=== PATIENT | female | born 1960 | race African-American/Black ===

== ENCOUNTER 2024-06-28 08:27 | Outpatient (AMB) | payer OTHER, SELFPAY ==
[2024-06-28 08:32] VITALS: BP 122/70; PULSE 82; O2SAT 100; BMI 24.4
--- NOTE | 2024-06-28 08:32 | A.OFFVIS_ITS ---
Vital Signs 06/28/24 08:32 Height 5 ft 2.5 in Weight 135 lb 6 oz BMI 24.4 BP 122/70 Blood Pressure Location Lt brachial Position Sitting Pulse 82 Pulse Source Pulse Oximeter Pulse Oximetry (%) 100 Oxygen Delivery Method Room Air Intake Visit Reasons: Arthritis/MD RECIEVED Intake Note: Patient presents today for follow up on rheumatoid arthritis. HPI HPI Arthritis/MD RECIEVED: Details: She feels well. She had a 21 day fast and has been eating healthy. No recent infections. Review of Systems Const All systems reviewed & are unremarkable except as noted in HPI and below Physical Exam Vital Signs: Last Vital Signs Pulse 82 06/28/24 08:32 BP 122/70 06/28/24 08:32 Pulse Ox 100 06/28/24 08:32 Oxygen Delivery Method Room Air 06/28/24 08:32 BMI result Body Mass Index 24.4 Const Other: General: Comfortable CVS: RRR Respiratory: clear to auscultation bilaterally. Good respiratory effort Skin: No lesions seen MSK: No tenderness on palpation of any joints. No synovitis. Good range of motion of upper extremities and lower extremities. Assessment & Plan Assessment & Plan (1) Rheumatoid arthritis: Comment: Seronegative (RF/CCP). Positive ELICEO 1:640. Methotrexate 09/2021 to present, hydroxychloroquine May 2022 to present. She is in remission on current regimen. Code(s): M06.9 - Rheumatoid arthritis, unspecified Category: Medical Plan: Labs for disease and drug monitoring ordered Continue hydroxychloroquine 300 mg daily. Requesting last eye exam for hydroxychloroquine surveillance Continue methotrexate 20 mg once weekly. After lab results are back, we will send three-month supply Continue folic acid 1 mg daily (2) Other adjunct faculty for medical terminology (current) drug therapy: Code(s): Z79.899 - Other chcf (current) drug therapy Category: Medical Plan: See above Orders: Orders C Reactive Protein Today M06.9 - Rheumatoid arthritis, unspecified, Z79.899 - Other chcf (current) drug therapy Alanine Aminotransferase Today Z79.60 - terminal operations supervisor (current) use of unspecified immunomodulators and immunosuppressants Aspartate Amino Transferase Today Z79.60 - prison (current) use of unspecified immunomodulators and immunosuppressants Creatinine Today Z79.60 - terminal operations supervisor (current) use of unspecified immunomodulators and immunosuppressants Hepatitis B,C Profile Today M06.9 - Rheumatoid arthritis, unspecified, Z79.899 - Other adjunct faculty for medical terminology (current) drug therapy Erythrocyte Sedimentation Rate Today M06.9 - Rheumatoid arthritis, unspecified, Z79.899 - Other chcf (current) drug therapy Complete Blood Count Auto Diff Today Z79.60 - prison (current) use of unspecified immunomodulators and immunosuppressants T Spot TB Today M06.9 - Rheumatoid arthritis, unspecified, Z79.899 - Other adjunct faculty for medical terminology (current) drug therapy Cyclic Citrullinated Peptide Today M06.9 - Rheumatoid arthritis, unspecified, Z79.899 - Other chcf (current) drug therapy Rheumatoid Factor Today M06.9 - Rheumatoid arthritis, unspecified, Z79.899 - Other adjunct faculty for medical terminology (current) drug therapy Coding Level of Care Code Est Pt Level 4 (82472) Complex EM visit Add On G2211 Diagnoses Rheumatoid arthritis M06.9 Other adjunct faculty for medical terminology (current) drug therapy Z79.899
== END 2024-06-28 09:21 | disposition home or self-care (01) ==
PROVIDERS: PCP Internal Medicine; Visit Provider Internal Medicine Rheumatology
DX: M06.9 Rheumatoid arthritis, unspecified (principal); Z79.899 Other long term (current) drug therapy
CPT/HCPCS: 99214

== ENCOUNTER 2024-06-28 08:27 | Outpatient (REF) | payer OTHER, SELFPAY ==
[2024-06-28 10:18] LABS: MANUAL DIFF FLAG NO
[2024-06-28 11:18] LABS: Basophils Percent Auto 0.7 % (0-2); Eosinophils Absolute Auto 0.1 X10*3/uL (0.0-0.4); Eosinophils Percent Auto 1.2 % (0-4); Hematocrit 39.2 % (37.0-47.0); Hemoglobin 13.1 g/dl (12.0-16.0); Imm Gran Abs Auto 0.01 X10*3/uL (0.00-0.03); Imm Gran Pct Auto 0.2 % (0.0-0.4); Lymphocytes Absolute Auto 1.7 X10*3/uL (1.2-4.9); Lymphocytes Percent Auto 42.2 % (20-40); Mean Corpuscular HGB Conc 33.4 g/dl (31.0-35.0); Mean Corpuscular Volume 92.9 fL (80.0-98.0); Mean Platelet Volume 11.6 fL (9.4-12.3); Monocytes Absolute Auto 0.4 X10*3/uL (0.1-1.2); Monocytes Percent Auto 10.7 % (2-11); Neutrophils Absolute Auto 1.8 x10*3/uL (2.0-8.3); Platelet Count 283 X10*3/uL (160-400); Red Blood Count 4.22 X10*6/uL (4.20-5.50); Red Cell Distribution Width 13.8 % (11.0-16.0); White Blood Count 4.1 X10*3/uL (4.8-10.8)
[2024-06-28 11:36] LABS: Rheumatoid Factor < 13.0 IU/mL (<15.0)
[2024-06-28 11:57] LABS: Erythrocyte Sedimentation Rate 12 MM/HR (0-20)
[2024-06-28 12:01] LABS: Alanine Aminotransferase 24 U/L (0-31); Aspartate Amino Transferase 24 U/L (5-31); C Reactive Protein 0.28 mg/dL (< or = 0.50); Estimated Glomerular Filt Rate > 60
[2024-06-28 12:38] LABS: HBS Num1 2.58 mIU/mL (0-7.99); HBc Num1 0.14 S/CO (0.00-0.79); HBsAGNum1 0.36 S/CO (0.00-0.99); Hepatitis B Core Antibody Nonreactive (Nonreactive); Hepatitis B Surface Antigen Negative (Negative); ~HepC Num1 0.12 S/CO (0.00-0.79); ~Hepatitis B Surface Antibody NONREACTIVE (Nonreactive); ~Hepatitis C Antibody Nonreactive (Nonreactive)
[2024-07-01 16:28] LABS: TS Negative Control Passed; TS Panel A 0; TS Panel B 0; TS Positive Control Passed; TSpotTB Negative (Negative)
[2024-07-03 15:12] LABS: Cyclic Citrullinated Peptide <16 UNITS
== END 2024-06-28 08:28 | disposition home or self-care (01) ==
LOC: HO.LAB 08:27
PROVIDERS: PCP Internal Medicine; Visit Provider Internal Medicine Rheumatology
DX: M06.9 Rheumatoid arthritis, unspecified (principal); Z79.899 Other long term (current) drug therapy; Z79.60 Long term (current) use of unspecified immunomodulators and immunosuppressants
CPT/HCPCS: 36415; 82565; 84450; 84460; 85025; 85652; 86140; 86200; 86431; 86481; 86704; 86706; 86803; 87340

== ENCOUNTER 2024-09-18 10:34 | Outpatient (REF) | payer OTHER, SELFPAY ==
[2024-09-18 11:02] LABS: MANUAL DIFF FLAG NO
[2024-09-18 12:02] LABS: Basophils Percent Auto 0.7 % (0-2); Eosinophils Percent Auto 0.9 % (0-4); Hematocrit 39.9 % (37.0-47.0); Hemoglobin 13.1 g/dl (12.0-16.0); Imm Gran Abs Auto 0.01 X10*3/uL (0.00-0.03); Imm Gran Pct Auto 0.2 % (0.0-0.4); Lymphocytes Absolute Auto 1.7 X10*3/uL (1.2-4.9); Lymphocytes Percent Auto 39.3 % (20-40); Mean Corpuscular HGB Conc 32.8 g/dl (31.0-35.0); Mean Corpuscular Hemoglobin 31.8 pg (27.0-33.0); Mean Corpuscular Volume 96.8 fL (80.0-98.0); Mean Platelet Volume 11.4 fL (9.4-12.3); Monocytes Absolute Auto 0.5 X10*3/uL (0.1-1.2); Monocytes Percent Auto 12.4 % (2-11); Neutrophils Percent Auto 46.5 % (45-73); Platelet Count 273 X10*3/uL (160-400); Red Blood Count 4.12 X10*6/uL (4.20-5.50); Red Cell Distribution Width 13.5 % (11.0-16.0); White Blood Count 4.3 X10*3/uL (4.8-10.8)
--- OUTSIDE RECORDS SUMMARY | 2024-09-18 12:41 | XMS_ITS | Encounter Summary ---
Author Organization [facility] Address [address] [place] [address] Phone Care Team Providers Care Telescope Maintenance Name Role Phone Bruno Hawley Primary Care Provider [phone] Encounter Details Date Type Department Care Team (Late st Contact Info) Description 01/07/2022 Documentation Only [facility] [address] [place] [address] Jon Gomez MD [address] [place] [address] Social History Tobacco Use Types Packs/Day Years Used Date Smoking Tobacco: Never Smokeless Tobacco: Never Alcohol Use Standard Drinks/Week Comments No 0 (1 standard drink = 0.6 oz pur e alcohol) Comments Unknown Sex and Gender Information Value Date Recorded Sex Assigned at Not on file Legal Sex Female 4:36 PM EST Gender Identity Not on file Sexual Orientation Not on file documented as of this encounter Plan of Treatment Not on file documented as of this encounter Visit Diagnoses Not on filedocumented in this encounter Care Teams Telescope Maintenance Relationship Specialty Start Date End Date Bruno Hawley [address] [place] [id number] PCP - General Internal Medicine 09/12/19 documented as of this encounter
--- OUTSIDE RECORDS SUMMARY | 2024-09-18 12:41 | XMS_ITS | Clinical Summary ---
Author Organization [facility], Address [address] [place] [address] [place] [address] Phone Care Team Providers Care Clinical Manager Name Role Phone Bruno Hawley Primary Care Provider [phone] Allergies Active Allergy Reactions Criticality Noted Date Comments Penicillins Other (see comments) 09/04/2019 Medications raNITIdine (ZANTAC) 150 MG tablet Take 1 tablet by mouth 2 (two) times a day Active norethindrone-e thinyl estradiol (LOESTRIN 07/30, ,) 1-20 MG-MCG per tablet Take 1-20 mcg by mouth 1 (one) time each day Active norethindrone-e thinyl estradiol (JUNEL 07/30) 1-20 MG-MCG per tablet Take 1-20 mcg by mouth 1 (one) time each day 6 Active fluticasone (FLONASE) 50 MCG/ACT nasal spray Administer 50 sprays into each nostril 2 (two) times a day Active Eflornithine HCl (VANIQA) 13.9 % cream Apply 13.9 application topically 1 (one) time each day Active omeprazole (PriLOSEC) [address] capsule Take 2 capsules by mouth 1 (one) time each day Active loratadine (CLARITIN) 10 MG tablet Take 10 mg by mouth 1 (one) time each day 0 Active Flovent HFA 220 MCG/ACT inhaler TAKE 1 PUFF BY MOUTH TWICE A DAY 0 Active famotidine (PEPCID) 20 MG tablet Take 20 mg by mouth 0 Active EPINEPHrine (EPIPEN) 0.3 MG/0.3ML injection syringe INJECT 1 DEVICE DIRECTED NEEDED (ANAPHYLAXIS). USE DIRECTED 0 Active Active Problems Problem Noted Date Diagnosed Date Fibromyalgia 09/04/2019 Nephrocalcinosis 09/04/2019 Steatosis of liver 09/04/2019 Vitamin D deficiency 09/04/2019 Encounters Date Type Department Care Team Description 08/13/2024 Orders Only [facility] [address] [place] [address] Hossein Naik MD from Last 3 Months Immunizations Name Administration Dates Next Due Influenza, Recombinant, Quadrivalent, Pf 020 Tdap 06/22/2012 Family History Medical History Relation Comments Cancer Father prostate Hypertension Father Cancer Mother breast Relation Status Comments Father Mother Social History Tobacco Use Types Packs/Day Years Used Date Smoking Tobacco: Never Smokeless Tobacco: Never Alcohol Use Standard Drinks/Week Comments No 0 (1 standard drink = 0.6 oz pur e alcohol) Comments Unknown Sex and Gender Information Value Date Recorded Sex Assigned at Not on file Legal Sex Female 4:36 PM EST Gender Identity Not on file Sexual Orientation Not on file Last Filed Vital Signs Vital Sign Reading Time Taken Comments Blood Pressure 94/64 04/06/2018 12:00 PM EDT Pulse - - Temperature - - Respiratory Rate - - Oxygen Saturation - - Inhaled Oxygen Concentration - - Weight - - Height 157.5 cm (5' 2 ) 04/06/2018 12:00 PM EDT Body Mass Index - - Plan of Treatment Health Maintenance Due Date Last Done Comments Breast Cancer Screening 1960 Pneumococcal Vaccine: Pediat rics (0 to 5 Years) and At-Risk Patients (6 to 64 Years) (1 of 2 - PCV) 1968 Colorectal Cancer Screening: Annual FOBT 10/09/2011 Colorectal Cancer Screening: Colonoscopy 10/09/2011 Colorectal Cancer Screening: Sigmoidoscopy 10/09/2011 Influenza Vaccine (#1) 2024 05/26/2020 Hepatitis B Vaccine Aged Out No longe r eligible based on patient's age to complete this topic Procedures Procedure Name Priority Date/Time Associated Diagnosis Comments OXALATE, URINE, 24 HOUR Routine 08/13/2024 10:41 AM EST CITRATE, URINE, 24 HOUR WITH CREATININE Routine 08/13/2024 10:41 AM EST RENAL FUNCTION PANEL Routine 08/13/2024 10:41 AM EST URINE ALBUMIN / CREATININE RATIO Routine 08/13/2024 10:41 AM EST CALCIUM, URINE, 24 HOUR Routine 08/13/2024 10:41 AM EST URIC ACID, URINE, 24 HOUR Routine 08/13/2024 10:41 AM EST CREATININE, URINE, 24 HOUR Routine 08/13/2024 10:41 AM EST SODIUM, URINE, 24 HOUR Routine 08/13/2024 10:41 AM EST CBC WITH AUTO DIFFERENTIAL Routine 08/13/2024 10:41 AM EST UA W/REFLEX MICROSCOPIC & CULTURE Routine 08/13/2024 10:41 AM EST from Last 3 Months Results * DIGOXIN LEVEL (HC) (08/13/2024 10:41 AM EST) Specific Mcdougal 1.011 1.003 - 1.030 [facility] pH Urine 6.0 5.0 - 8.0 pH [facility] LEUKOCYTES, URINE Negative Negative [facility] Nitrite, Urine Negative Negative [facility] Protein, Urine Negative <=Trace mg/dL [facility] Glucose Urine Negative Negative mg/dL [facility] Ketones, Urine Negative Negative mg/dL [facility] Urobilinogen Urine 0.2 0.2 - 1.0 mg/dL [facility] Bilirubin Urine Negative Negative [facility] Blood Urine Negative Negative [facility] 08/13/2024 10:4 1 AM EST 08/13/2024 11:49 AM EST us Hossein Niak MD LAB [id number] LICITED RESULTS Final Result HAYDE[facility] [address] [place] [address] * (ABNORMAL) CBC auto differential (08/13/2024 10:41 AM EST) WBC 4.5(L) 4.8 - 10.8 K/mcL [facility] RBC 3.90 3.80 - 4.80 M/[facility] Hgb 12.5 11.5 - 16.0 g/dL [facility] Hematocrit 38.8 35.0 - 47.0 % [facility] MCV 99.2(H) 79.0 - 98.0 FL [facility] MCH 32.0 27.0 - 32.0 pcg [facility] MCHC 32.2 32.0 - 37.0 g/dL [facility] RDW 13.8 11.0 - 15.0 % [facility] Platelets 304 130 - 400 K/[facility] MPV 11.8(H) 7.0 - 11.0 FL [facility] nRBC Count 0.0 <1.0 % [facility] NRBC Absolute 0.00 <0.10 K/mcL [facility] Bands Relative 38.8 % [facility] Lymphocyte Realative Percent 46.5 % [facility] Monocyte Relative Percent 12.2 % [facility] Eosinophil Relative Percent 1.8 % [facility] Basophils Relative Diff 0.7 % [facility] Immature Granulocytes 0.0 % [facility] Neutrophils Absolute 1.76 1.50 - 7.00 K/[facility] Lymphocytes Absolute 2.10 1.00 - 5.00 K/[facility] Monocytes Absolute 0.55 0.20 - 1.00 K/[facility] Eosinophil Absolute 0.08 0.00 - 0.50 K/[facility] Basophil ABS 0.03 0.00 - 0.20 K/[facility] Immature Grans (Absolute) 0.00 0.00 - 0.03 K/[facility] 08/13/2024 10:4 1 AM EST 08/13/2024 11:49 AM EST Hossein Naik MD LAB BLOOD ORDERABLES Final Resu lt Performing Organization Address City/[facility] [address]/ZIP Co de Phone Number [facility] [address] [place] [address] * Urine Uric Acid, 24 hour (08/13/2024 10:41 AM EST) Uric Acid, Ur 14.0 mg/dL [facility] Uric Acid, 24H Ur 420 0 - 800 mg/24 hr [facility] Urine Volume 3,000 mL [facility] Collection Interval, Ur 24 hr [facility] 08/13/2024 10:4 1 AM EST 08/13/2024 11:46 AM EST us Hossein Naik MD LAB URINE ORDERABLES Final Resu lt Performing Organization Address City/[facility] [address]/ZIP Co de Phone Number [facility] [address] [place] [address] * Urine Calcium, 24 hour (08/13/2024 10:41 AM EST) Calcium, Ur <5.0 mg/dL [facility] Calcium, 24H Urine <150 50 - 400 mg/24 hr [facility] Urine Volume 3,000 mL [facility] Collection Interval, Ur 24 hr [facility] 08/13/2024 10:4 1 AM EST 08/13/2024 11:46 AM EST us Hossein Naik MD LAB URINE ORDERABLES Final Resu lt [facility] [address] [place] [address] * Creatinine, urine, 24 hour (08/13/2024 10:41 AM EST) Creatinine, Urine 32.0 mg/dL [facility] Creatinine, 24H Ur 960 800 - 2,000 mg/24 Hr [facility] Urine Volume 3,000 mL [facility] Collection Interval, Ur 24 hr [facility] 08/13/2024 10:4 1 AM EST 08/13/2024 11:46 AM EST us Hossein Naik MD LAB URINE ORDERABLES Final Resu lt [facility] [address] [place] [address] * Urine Albumin / Creatinine Ratio (08/13/2024 10:41 AM EST) Creatinine, Urine 84.0 mg/dL [facility] Microalbumin Urine Random 6.2 0.0 - 29.0 mg/L [facility] Microalbumin/Crea tinine Ratio 7 <30 mg/g creat [facility] 08/13/2024 10:4 1 AM EST 08/13/2024 11:49 AM EST us Hossein Naik MD LAB URINE ORDERABLES Final Resu lt Performing Organization Address [facility] [address]/ZIP Co de Phone Number [facility] [address] [place] [address] * Urine Sodium, 24 hour (08/13/2024 10:41 AM EST) Sodium, Ur 32 mmol/L [facility] Sodium, 24H Ur 96 40 - 220 mmol/24 hr [facility] Urine Volume 3,000 mL [facility] Collection Interval, Ur 24 hr [facility] 08/13/2024 10:4 1 AM EST 08/13/2024 11:46 AM EST us Hossein Naik MD LAB URINE ORDERABLES Final Resu lt Performing Organization Address [facility] [address]/[facility] de Phone Number [facility] [address] [place] [address] * Urine Oxalate, 24 hour (08/13/2024 10:41 AM EST) 24 HR Urine Volume 3,050 600 - 2000 mL [facility] Creatinine, 24H Ur 1.1 0.8 - 1.8 gm/24h [facility] Oxalate, 24H Ur 27 0 - 42 mg/day [facility] Comment: Test performed at [facility], [address] [place] [address] ? [phone] Denice Tejada MD, PhD - Broker Associate 08/13/2024 10:4 1 AM EST 08/13/2024 12:30 PM EST us Hossein Naik MD LAB URINE ORDERABLES Final Resu lt [facility] [address] [place] [address] * Citrate, urine, 24 hour with Creatinine (08/13/2024 10:41 AM EST) 24 HR Urine Volume 3,050 600 - 2000 mL [facility] Creatinine, 24H Ur 1.1 0.8 - 1.8 gm/24h [facility] Citrate, 24H Ur 863 280 - 1,240 mg/day [facility] Comment: Test performed at [facility], [address] [place], [place] ??[address] ? [phone] Denice Tejada MD, PhD - Broker Associate 08/13/2024 10:4 1 AM EST 08/13/2024 12:30 PM EST us Hossein Naik MD LAB URINE ORDERABLES Final Resu lt Performing Organization Address [facility] [address]/[facility] de Phone Number [facility] [address] [place] [address] * Renal Function Panel (08/13/2024 10:41 AM EST) Sodium 141 133 - 145 mmol/L [facility] Potassium 4.4 3.5 - 5.5 mmol/L [facility] Chloride 107 96 - 110 mmol/L [facility] Bicarbonate (CO2) 26 21 - 32 mmol/L [facility] Anion Gap 8 3 - 11 [facility] Glucose 90 70 - 100 mg/dL [facility] BUN 8 5 - 25 mg/dL [facility] Creatinine Serum 0.72 0.50 - 1.10 mg/dL [facility] eGFR 95 >=60 mL/min/1. 73m2 [facility] Comment:Calculation based on the?Chronic Kidney Disease Epidemiology Collaboration (CKD-EPI) equation refit?without adjustment for race. BUN/Creatinine Ratio 11.1 [facility] Albumin 3.9 3.2 - 5.0 g/dL [facility] Calcium 9.5 8.5 - 10.5 mg/dL [facility] Phosphorus 3.7 2.5 - 4.5 mg/dL [facility] 08/13/2024 10:4 1 AM EST 08/13/2024 2:38 PM EST us Hossein Naik MD LAB BLOOD ORDERABLES Final Resu lt [facility] [address] [place] [address] from Last [address] [place] [address] [place] [address] Care Teams Clinical Manager Relationship Specialty Start Date End Date Bruno Hawley [address] [place] [id number] PCP - General Internal Medicine 09/12/19
--- OUTSIDE RECORDS SUMMARY | 2024-09-18 12:41 | XMS_ITS | Encounter Summary ---
Author Organization [facility] Address [address] [place] [address] Phone Care Team Providers Care Precision Machining Instructor Name Role Phone Bruno Hawley Primary Care Provider [phone] Encounter Details Date Type Department Care Team (Late st Contact Info) Description 08/09/2022 Documentation Only [facility] [address] [place] [address] Jon Gomez MD [address] [place] [address] Social History Tobacco Use Types [...] on filedocumented in this encounter Care Teams Precision Machining Instructor Relationship Specialty Start Date End Date Bruno Hawley [address] [place] [phone] PCP - General Internal Medicine 09/12/19 documented as of this encounter
--- OUTSIDE RECORDS SUMMARY | 2024-09-18 12:41 | XMS_ITS | Clinical Summary ---
Author Organization [facility] Address [address] [place] [id number] Phone Care Team Providers Care Meat Cooler Name Role Phone Karla Staton MD Primary Care Provider [phone] Allergies Active Allergy Reactions Criticality Noted Date Comments Lactose Diarrhea 03/17/2022 Penicillins 04/12/2006 ? Dizziness and dif breathing Medications azelastine (ASTELIN) 137 mcg (0.1 %) nasal spray INHALE 1 TO 2 SPRAY TWO TIMES A DAY IN EACH NOSTYRIL Active fluticasone furoate-vilante roL (BREO ELLIPTA) 200-25 mcg/dose inhaler INHALE 1 PUFF INTO THE LUNGS DAILY. RINSE MOUTH WITH WATER AND EXPECTORATE AFTER EACH DOSE Active hydroxychloroqu ine (PLAQUENIL) 200 mg tablet TAKE 1 & 1/2 TABLET BY MOUTH EVERY DAY 4 Active meclizine (ANTIVERT) 25 mg tablet Take 1 tablet (25 mg total) by mouth every 8 (eight) hours if needed for dizziness. 3 Active famotidine (PEPCID) 20 mg tablet Take 1 tablet (20 mg total) by mouth 2 (two) times a day. 3 Active albuterol HFA (PROAIR HFA ; PROVENTIL HFA ; VENTOLIN HFA) 90 mcg/actuation inhaler Inhale 2 Puffs into the lungs every 6 hours as needed for Cough, Wheezing or Shortness of Breath 3 Active folic acid (FOLVITE) 1 mg tablet folic acid 1 mg tablet Active methotrexate 2.5 mg tablet 8 tabs every week Active loratadine (CLARITIN) 10 mg tablet Take 1 tablet (10 mg total) by mouth 1 (one) time each day. 2 Active fluticasone propionate (FLONASE) 50 mcg/actuation nasal spray SPRAY 1 SPRAY INTO EACH NOSTRIL EVERY DAY BY INTRANASAL ROUTE DIRECTED FOR NASAL CONGESTION. 4 Active pantoprazole (PROTONIX) 40 mg EC tablet TAKE 1 TABLET BY MOUTH DAILY. TAKE IN A.M. ON EMPTY STOMACH, WAIT 30 MINUTES AND THEN EAT TO ACTIVATE MEDICATION 90 tablet 3 4 Active Active Problems Problem Noted Date Diagnosed Date Dysphagia 04/27/2024 Hoarseness of voice 04/27/2024 Postnasal drip 04/27/2024 Seasonal allergies 04/27/2024 Prediabetes 05/18/2023 Raynauds syndrome 09/15/2021 Rheumatoid arthritis 09/15/2021 Overview (04/27/2024): [facility] RF negative RA Dry eyes 10/04/2019 PND (post-nasal drip) 04/09/2019 Occupational asthma 06/20/2018 Chronic allergic rhinitis 01/31/2018 Evidence of airways hyperrea ctivity without diagnosis of asthma 01/31/2018 Upper airway cough syndrome 01/31/2018 Nephrolithiasis 02/13/2015 Lumbosacral disc herniation 07/01/2014 Overview (04/27/2024): Ongoing back pain , seen on abd ct in 2013 Nephrocalcinosis 06/28/2014 Vitamin D deficiency 05/26/2010 Heartburn symptom 05/25/2010 Mild mitral regurgitation 01/20/2010 Overview (04/27/2024): ECHO: 01/2010 Hepatic steatosis 10/24/2009 Overview (04/27/2024): Seen on CT abd 10/2009 Rectal pain 10/04/2008 Elevated antinuclear antibody (ELICEO) level 2008 Disturbance of skin sensation 05/11/2007 Overview (04/27/2024): Dr. Abad; 2006 MRI showed T2 lesion R centrum ovale - ? Significance Much improved 05/2011 Carpal tunnel syndrome 12/07/2006 Overview (04/27/2024): EMG 10/25: moderate to severe on right, mild on left Dizziness and giddiness 12/07/2006 Overview (04/27/2024): seen neurologist in [place]. MRI normal in 11/2001 Encounters Date Type Department Care Team Description 08/01/2024 1:15 PM EST Office Visit Nephrology - [place] [address] [place] [address] Hossein Naik MD Nephrocalcinosis (Primary Dx); Nephrolithiasis from Last 3 Months Immunizations Name Administration Dates Next Due Influenza Quadravalent, MDCK , 0.5ml, preservative free (Flucelvax) 6mo and older 03/13/2024,05/17/2023,05/28/2021 Influenza Quadravalent, MDCK , 0.5ml, with preservative (Flucelvax) 6mo and older 05/14/2018 Pfizer SARS-CoV-2 COVID-19, mRNA, LNP-S, preservative free 04/05/2021,03/15/2021 Tdap Tetanus diptheria acell ular pertussis (Boostrix; Adacel) 7yo and older 05/17/2023,06/22/2012 Surgical History Surgery Date Site/Laterality Comments FLEXIBLE SIGMOIDOSCOPY 10/04/08 PROCEDURE: ME SIGMOIDOSCOPY FLX DX W/COLLJ SPEC BR/WA IF PFRMD; COMMENT: normal COLONOSCOPY 12/19/13 PROCEDURE: HISTORICAL COLONOSCOPY; COMMENT: tics; repeat in ten yrs ESOPHAGOGASTRODUODENOSCOPY 12/19/13 PROCEDURE: ME ESOPHAGOGASTRODUODENOSCOPY TRANSORAL DIAGNOSTIC; COMMENT: normal; nl duodenal biopsies CHOLECYSTECTOMY Medical History Medical History Date Comments Carpal tunnel syndrome 12/07/2006 DX:Carpal tunnel syndrome Dizziness and giddiness 12/07/2006 DX:Dizzi ness and giddiness Disturbance of skin sensation 05/11/2007 DX :Disturbance of skin sensation; COMMENT: Dr. Abad; 2006 MRI showed T2 lesion R centrum ovale - ? significance Elevated antinuclear antibod y (ELICEO) level 09/20/2008 DX:Elevated antinuclear anti body (ELICEO) level Breast lump DX:Breast lump Dysphagia DX:Dysphagia Esophageal reflux DX:Esophageal reflux Hoarseness of voice DX:Hoarsenes s of voice Postnasal drip DX:Postnasal dri p Seasonal allergies DX:Seasonal a llergies Asthma DX:Asthma Status post dilation of esop hageal narrowing DX:Status post dilation of e sophageal narrowing Constipation DX:Constipation Rheumatoid arthritis (CMS/HCC) D X:Rheumatoid arthritis (HCC) Chronic bronchitis (CMS/HCC) DX: Chronic bronchitis (HCC) Raspy voice DX:Raspy voice Esophageal stenosis DX:Esophagea l stenosis Migraines Family History Medical History Relation Name Comments Other: cancer Aunt paternal aunt, type uncertain Prostate cancer Father Other cancer Maternal Grandmother stomach Arthritis Mother Breast cancer Mother's side cousin, and m om's sister Colon cancer Neg Hx Ovarian cancer Neg Hx Relation Name Status Comments Aunt Father htn, prostate c ancer Maternal Grandmother Mother dm, Mother's side Social History Tobacco Use Types Packs/Day Years Used Date Smoking Tobacco: Never Smokeless Tobacco: Never Alcohol Use Standard Drinks/Week Comments No 0 (1 standard drink = 0.6 oz pur e alcohol) Interpersonal Safety Answer Date Record ed Physical Abuse 06/13/2024 Verbal Abuse 06/13/2024 Comments No Sex and Gender Information Value Date Recorded Sex Assigned at Not on file Legal Sex Female 8:46 AM EST Gender Identity Not on file Sexual Orientation Not on file Obstetrics History Last Filed Vital Signs Vital Sign Reading Time Taken Comments Blood Pressure 118/79 08/01/2024 1:22 PM EST Pulse 90 08/01/2024 1:22 PM EST Temperature 36.7 ??C (98 ??F) 06/13/2024 4:08 PM EST Respiratory Rate 15 06/13/2024 4:28 PM EST Oxygen Saturation 99% 06/13/2024 4:28 PM EST Inhaled Oxygen Concentration - - Weight 62.1 kg (136 lb 12.8 oz) 08/01/2024 1:22 PM EST Height 157.5 cm (5' 2 ) 06/13/2024 3:10 PM EST Body Mass Index 25.02 06/13/2024 3:10 PM EST Plan of Treatment Upcoming Encounters Date Type Department Care Team (Late st Contact Info) Description 10/19/2024 11:30 AM EDT Office Visit [facility] - [address] [phone] Karla Staton MD [address] [place], [place] 02/27/2025 3:00 PM EDT Office Visit Nephrology - [address] [phone] Hossein Naik MD 100 [facility] [address] [place] [address] Health Maintenance Due Date Last Done Comments Breast Cancer Screening 1960 Hepatitis A Vaccines (1 of 2 - Risk 2-dose series) 1981 Pneumococcal Vaccine: 50+ Years (1 of 2 - PCV) 1981 Pneumococcal Vaccine: Pediatrics (0 to 5 Years) and At-Risk Patients (6 to 64 Years) (1 of 2 - PCV) 1981 Zoster Vaccines (1 of 2) 2012 COVID-19 Vaccine (3 - Pfizer risk series) 05/03/2021 04/05/2021, 03/15/2021 Depression Screening 06/19/2022 Social Influencers of Health Screening 06/19/2022 Hepatitis B Vaccines (1 of 3 - Risk 3-dose series) 2022 RSV Immunization Patients 60+ Years Old (1 - Risk 60-74 years 1-dose series) 2022 Cervical Cancer Screening: HPV 11/10/2028 11/11/2023 Cholesterol Screening (Lipid Panel) 11/23/2028 11/24/2023, 11/24/2023 Colorectal Cancer Screening: Colonoscopy 06/13/2029 06/13/2024, 12/19/2013 DTaP,Tdap,and Td Vaccines (3 - Td or Tdap) 05/17/2033 05/17/2023, 06/22/2012 HIV Screening Completed 10/12/2017 Hepatitis C Screening Completed 10/12/2017 Influenza Vaccine Completed 03/13/2024, , 05/28/2021, Additional history exists HIB Vaccines Aged Out No longer eligi ble based on patient's age to complete this topic HPV Vaccines Aged Out No longer eligi ble based on patient's age to complete this topic IPV Vaccines Aged Out No longer eligi ble based on patient's age to complete this topic MMR Vaccines Aged Out No longer eligi ble based on patient's age to complete this topic Meningococcal ACWY Vaccine Aged Out N o longer eligible based on patient's age to complete this topic Meningococcal B Vacine Aged Out No lo nger eligible based on patient's age to complete this topic RSV Immunization Patients Under 20 months Aged Out No longer eligible based on patient's age to complete this topic Varicella Vaccines Aged Out No longer eligible based on patient's age to complete this topic Procedures Procedure Name Priority Date/Time Associated Diagnosis Comments MANCINI URINE CULTURE TUBE Routine 08/13/2024 11:08 AM EST Nephrocalcinosis Nephrolithiasis Frequency of urination CBC WITH AUTO DIFFERENTIAL Routine 08/13/2024 10:41 AM EST Chronic kidney disease, unspecified CKD stage RENAL FUNCTION PANEL Routine 08/13/2024 10:41 AM EST Chronic kidney disease, unspecified CKD stage CBC AND DIFFERENTIAL Routine 08/13/2024 10:41 AM EST Chronic kidney disease, unspecified CKD stage URINALYSIS WITH REFLEX MICROSCOPIC AND CULTURE Routine 08/13/2024 10:41 AM EST Nephrocalcinosis Nephrolithiasis Frequency of urination MICROALBUMIN CREATININE URINE RATIO Routine 08/13/2024 10:41 AM EST Chronic kidney disease, unspecified CKD stage CALCIUM, URINE, 24H Routine 08/13/2024 1 0:41 AM EST Nephrocalcinosis Nephrolithiasis CITRATE, URINE, 24H Routine 08/13/2024 1 0:41 AM EST Nephrocalcinosis Nephrolithiasis CREATININE, URINE, 24H Routine 08/13/2024 10:41 AM EST Nephrocalcinosis Nephrolithiasis OXALATE URINE, 24H Routine 08/13/2024 10 :41 AM EST Nephrocalcinosis Nephrolithiasis SODIUM, URINE, 24H Routine 08/13/2024 10 :41 AM EST Nephrocalcinosis Nephrolithiasis URIC ACID, URINE, 24H Routine 08/13/2024 10:41 AM EST Nephrocalcinosis Nephrolithiasis URINALYSIS WITH REFLEX MICROSCOPIC AND CULTURE Routine 08/13/2024 10:41 AM EST Nephrocalcinosis Nephrolithiasis Frequency of urination COLONOSCOPY Routine 06/13/2024 4:07 PM EST Special screening for malignant neoplasms, colon LIPID PANEL Routine 11/24/2023 HM HPV Routine 11/11/2023 HM HEPATITIS C SCREENING Routine 10/12/2017 HM HIV SCREENING Routine 10/12/2017 from Last 3 Months or Most Recently Relevant to Health Maintenance Results * Mancini urine culture tube (08/13/2024 11:08 AM EST) Extra Tube Hold for add-ons. 08/13/2024 1:02 PM EST [facility] Comment:Auto resulted. Urine Urine specimen obtained by clean catch procedure / Unknown Non-blood Collection / Unknown 08/13/2024 11:08 AM EST 08/13/2024 11:08 AM EST us Hossein Naik MD LAB URINE ORDERABLES Final Resu lt [facility] [address] [place] [address], [place] [phone] * Urinalysis with reflex microscopic and culture (08/13/2024 10:41 AM EST) Specific Morris Urine 1.011 1.003 - 1.030 LAB URINALYSIS - AUTOMATED METHOD 08/13/2024 12:13 PM [facility] pH, Urine 6.0 5.0 - 8.0 pH LAB URINALYSIS - AUTOMATED METHOD 08/13/2024 12:13 PM [facility] Leukocytes, Urine Negative Negative LAB URINALYSIS - AUTOMATED METHOD 08/13/2024 12:13 PM [facility] Nitrite, Urine Negative Negative LAB URINALYSIS - AUTOMATED METHOD 08/13/2024 12:13 PM [facility] Protein, Urine Negative <=Trace mg/dL LAB URINALYSIS - AUTOMATED METHOD 08/13/2024 12:13 PM [facility] Glucose, Urine Negative Negative mg/dL LAB URINALYSIS - AUTOMATED METHOD 08/13/2024 12:13 PM [facility] Ketones, Urine Negative Negative mg/dL LAB URINALYSIS - AUTOMATED METHOD 08/13/2024 12:13 PM [facility] Urobilinogen, Urine 0.2 0.2 - 1.0 mg/dL LAB URINALYSIS - AUTOMATED METHOD 08/13/2024 12:13 PM [facility] Bilirubin, Urine Negative Negative LAB URINALYSIS - AUTOMATED METHOD 08/13/2024 12:13 PM [facility] Blood, Urine Negative Negative LAB URINALYSIS - AUTOMATED METHOD 08/13/2024 12:13 PM [facility] Urine Urine specimen obtained by clean catch procedure / Unknown Non-blood Collection / Unknown 08/13/2024 10:41 AM EST 08/13/2024 10:41 AM EST Hossein Naik MD LAB URINE ORDERABLES Final Resu lt [facility] [address] [place] [address], * (ABNORMAL) CBC auto differential (08/13/2024 10:41 AM EST) [facility] Signature WBC 4.5(L) 4.8 - 10.8 K/mcL LAB HEMETOLOGY METHOD 08/13/2024 12:21 PM EST [facility] RBC 3.90 3.80 - 4.80 M/mcL LAB HEMETOLOGY METHOD 08/13/2024 12:21 PM [facility] Hemoglobin 12.5 11.5 - 16.0 g/dL LAB HEMETOLOGY METHOD 08/13/2024 12:21 PM [facility] Hematocrit 38.8 35.0 - 47.0 % LAB HEMETOLOGY METHOD 08/13/2024 12:21 PM [facility] MCV 99.2(H) 79.0 - 98.0 FL LAB HEMETOLOGY METHOD 08/13/2024 12:21 PM EST [facility] MCH 32.0 27.0 - 32.0 pcg LAB HEMETOLOGY METHOD 08/13/2024 12:21 PM [facility] MCHC 32.2 32.0 - 37.0 g/dL LAB HEMETOLOGY METHOD 08/13/2024 12:21 PM EST [facility] RDW 13.8 11.0 - 15.0 % LAB HEMETOLOGY METHOD 08/13/2024 12:21 PM [facility] Platelets 304 130 - 400 K/mcL LAB HEMETOLOGY METHOD 08/13/2024 12:21 PM [facility] MPV 11.8(H) 7.0 - 11.0 FL LAB HEMETOLOGY METHOD 08/13/2024 12:21 PM [facility] NRBC 0.0 <1.0 % LAB HEMETOLOGY METHOD 08/13/2024 12:21 PM [facility] NRBC Absolute 0.00 <0.10 K/mcL LAB HEMETOLOGY METHOD 08/13/2024 12:21 PM [facility] Neutrophils Relative 38.8 % LAB HEMETOLOGY METHOD 08/13/2024 12:21 PM [facility] Lymphocytes Relative 46.5 % LAB HEMETOLOGY METHOD 08/13/2024 12:21 PM [facility] Monocytes Relative 12.2 % LAB HEMETOLOGY METHOD 08/13/2024 12:21 PM [facility] Eosinophils Relative 1.8 % LAB HEMETOLOGY METHOD 08/13/2024 12:21 PM [facility] Basophils Relative 0.7 % LAB HEMETOLOGY METHOD 08/13/2024 12:21 PM [facility] Immature Granulocytes Relative 0.0 % LAB HEMETOLOGY METHOD 08/13/2024 12:21 PM [facility] Neutrophils Absolute 1.76 1.50 - 7.00 K/mcL LAB HEMETOLOGY METHOD 08/13/2024 12:21 PM [facility] Lymphocytes Absolute 2.10 1.00 - 5.00 K/mcL LAB HEMETOLOGY METHOD 08/13/2024 12:21 PM [facility] Monocytes Absolute 0.55 0.20 - 1.00 K/mcL LAB HEMETOLOGY METHOD 08/13/2024 12:21 PM [facility] Eosinophils Absolute 0.08 0.00 - 0.50 K/mcL LAB HEMETOLOGY METHOD 08/13/2024 12:21 PM [facility] Basophils Absolute 0.03 0.00 - 0.20 K/mcL LAB HEMETOLOGY METHOD 08/13/2024 12:21 PM [facility] Immature Granulocytes Absolute 0.00 0.00 - 0.03 K/mcL LAB HEMETOLOGY METHOD 08/13/2024 12:21 PM EST [facility] Blood Venous blood specimen / Unknown Venipuncture / Unknown 08/13/2024 10:41 AM EST 08/13/2024 10:41 AM EST us Hossein Naik MD LAB BLOOD ORDERABLES Final Resu lt [facility] [address] [place] [address], [place] [phone] * Uric acid, urine, 24H (08/13/2024 10:41 AM EST) Uric Acid, Ur 14.0 mg/dL LAB CHEMISTRY METHOD 08/13/2024 4:17 PM [facility] Uric Acid, 24H Ur 420 0 - 800 mg/24 hr LAB CHEMISTRY METHOD 08/13/2024 4:17 PM [facility] Urine Volume 3,000 mL LAB CHEMISTRY METHOD 08/13/2024 4:17 PM [facility] Collection Interval, Ur 24 hr LAB CHEMISTRY METHOD 08/13/2024 4:17 PM [facility] Urine Urine specimen from urethra / Unknown Non-blood Collection / Unknown 08/13/2024 10:41 AM EST 08/13/2024 10:41 AM EST us Hossein Naik MD LAB URINE ORDERABLES Final Resu lt [facility] [address] [place] [address], [place] [phone] * Calcium, urine, 24H (08/13/2024 10:41 AM EST) Calcium, Ur <5.0 mg/dL LAB CHEMISTRY METHOD 08/13/2024 4:52 PM [facility] Calcium, 24H Urine <150 50 - 400 mg/24 hr LAB CHEMISTRY METHOD 08/13/2024 4:52 PM EST [facility] Urine Volume 3,000 mL LAB CHEMISTRY METHOD 08/13/2024 4:52 PM [facility] Collection Interval, Ur 24 hr LAB CHEMISTRY METHOD 08/13/2024 4:52 PM EST [facility] Urine Urine specimen from urethra / Unknown Non-blood Collection / Unknown 08/13/2024 10:41 AM EST 08/13/2024 10:41 AM EST us Hossein Naik MD LAB URINE ORDERABLES Final Resu lt Performing Organization Address City/[facility]/ZIP Co de Phone Number [facility] [address] [place] [address], [place] [phone] * Creatinine, urine, 24H (08/13/2024 10:41 AM EST) Creatinine, Urine 32.0 mg/dL LAB CHEMISTRY METHOD 08/13/2024 4:17 PM [facility] Creatinine, 24H Ur 960 800 - 2,000 mg/24 Hr LAB CHEMISTRY METHOD 08/13/2024 4:17 PM [facility] Urine Volume 3,000 mL LAB CHEMISTRY METHOD 08/13/2024 4:17 PM [facility] Collection Interval, Ur 24 hr LAB CHEMISTRY METHOD 08/13/2024 4:17 PM [facility] Urine Urine specimen from urethra / Unknown Non-blood Collection / Unknown 08/13/2024 10:41 AM EST 08/13/2024 10:41 AM EST us Hossein Naik MD LAB URINE ORDERABLES Final Resu lt Performing Organization Address [facility]/ZIP Co de Phone Number [facility] [address] [place] [address], [place] [phone] * Microalbumin creatinine urine ratio (08/13/2024 10:41 AM EST) Creatinine, Urine 84.0 mg/dL LAB CHEMISTRY METHOD 08/13/2024 5:04 PM [facility] Microalb, Ur 6.2 0.0 - 29.0 mg/L LAB CHEMISTRY METHOD 08/13/2024 5:04 PM [facility] Microalb/Creat Ratio 7 <30 mg/g creat LAB CHEMISTRY METHOD 08/13/2024 5:04 PM [facility] Urine Urine specimen obtained by clean catch procedure / Unknown Non-blood Collection / Unknown 08/13/2024 10:41 AM EST 08/13/2024 10:41 AM EST us Hossein Naik MD LAB URINE ORDERABLES Final Resu lt Performing Organization Address City/State/[facility] Co de Phone Number [facility] [address] [place] [address], [place] [phone] * Sodium, urine, 24H (08/13/2024 10:41 AM EST) Sodium, Ur 32 mmol/L LAB CHEMISTRY METHOD 08/13/2024 4:17 PM [facility] Sodium, 24H Ur 96 40 - 220 mmol/24 hr LAB CHEMISTRY METHOD 08/13/2024 4:17 PM [facility] Urine Volume 3,000 mL LAB CHEMISTRY METHOD 08/13/2024 4:17 PM [facility] Collection Interval, Ur 24 hr LAB CHEMISTRY METHOD 08/13/2024 4:17 PM [facility] Urine Urine specimen from urethra / Unknown Non-blood Collection / Unknown 08/13/2024 10:41 AM EST 08/13/2024 10:41 AM EST us Hossein Naik MD LAB URINE ORDERABLES [facility] [address] [place] [address], * Oxalate, urine, 24H (08/13/2024 10:41 AM EST) Urine Volume 3,050 600 - 2000 mL 08/17/2024 12:37 PM EST [facility] Creatinine 24 Hr Urine 1.1 0.8 - 1.8 gm/24h 08/17/2024 12:37 PM EST [facility] Oxalate 24 Hr Urine 27 0 - 42 mg/day 08/17/2024 12:37 PM EST [facility] Comment: Test performed at [facility], [address] [place], [place] ??[address] ? [phone] Denice Tejada MD, PhD - [employer] Urine Urine specimen from urethra / Unknown Non-blood Collection / Unknown 08/13/2024 10:41 AM EST 08/13/2024 10:41 AM EST Hossein Naik MD LAB URINE ORDERABLES Final Resu lt [facility] [address] [place] [address] * Citrate, urine, 24H (08/13/2024 10:41 AM EST) Urine Volume 3,050 600 - 2000 mL 08/17/2024 12:32 PM EST [facility] Creatinine 24 Hr Urine 1.1 0.8 - 1.8 gm/24h 08/17/2024 12:32 PM EST [facility] Citrate Urine 24 hour 863 280 - 1240 mg/day 08/17/2024 12:32 PM EST [facility] Comment: Test performed at [facility], [address] [place], [place] ??[address] ? [phone] Denice Tejada MD, PhD - Metal Cut [employer] Operator Urine Urine specimen from urethra / Unknown Non-blood Collection / Unknown 08/13/2024 10:41 AM EST 08/13/2024 10:41 AM EST us Hossein Naik MD LAB URINE ORDERABLES Final [place]u [place] [address] [place] [address] * Renal function panel (08/13/2024 10:41 AM EST) Sodium 141 133 - 145 mmol/L LAB CHEMISTRY METHOD 08/13/2024 5:10 PM [facility] Potassium 4.4 3.5 - 5.5 mmol/L LAB CHEMISTRY METHOD 08/13/2024 5:10 PM [facility] Chloride 107 96 - 110 mmol/L LAB CHEMISTRY METHOD 08/13/2024 5:10 PM [facility] CO2 26 21 - 32 mmol/L LAB CHEMISTRY METHOD 08/13/2024 5:10 PM [facility] Anion Gap 8 3 - 11 LAB CHEMISTRY METHOD 08/13/2024 5:10 PM [facility] Glucose 90 70 - 100 mg/dL LAB CHEMISTRY METHOD 08/13/2024 5:10 PM [facility] BUN 8 5 - 25 mg/dL LAB CHEMISTRY METHOD 08/13/2024 5:10 PM [facility] Creatinine 0.72 0.50 - 1.10 mg/dL LAB CHEMISTRY METHOD 08/13/2024 5:10 PM [facility] eGFR 95 >=60 mL/min/1. 73m2 LAB CHEMISTRY METHOD 08/13/2024 5:10 PM [facility] Comment:Calculation based on the??Chronic Kidney Disease Epidemiology Collaboration (CKD-EPI) equation refit??without adjustment for race. BUN/Creatinine Ratio 11.1 LAB CHEMISTRY METHOD 08/13/2024 5:10 PM [facility] Albumin 3.9 3.2 - 5.0 g/dL LAB CHEMISTRY METHOD 08/13/2024 5:10 PM EST [facility] Calcium 9.5 8.5 - 10.5 mg/dL LAB CHEMISTRY METHOD 08/13/2024 5:10 PM EST [facility] Phosphorus 3.7 2.5 - 4.5 mg/dL LAB CHEMISTRY METHOD 08/13/2024 5:10 PM EST [facility] Blood Venous blood specimen / Unknown Venipuncture / Unknown 08/13/2024 10:41 AM EST 08/13/2024 10:41 AM EST us Hossein Naik MD LAB BLOOD ORDERABLES Final Resu lt [facility]) [facility] [address] [place] [address], * COLONOSCOPY Anesthesia - [facility]; [facility] ENDOSCOPY (06/13/2024 4:07 PM EST) Anatomical Region Laterality Modality Endoscopy 06/13/2024 3:52 PM EST Impressions 06/13/2024 4:09 PM EST - Three 2 to 3 mm polyps in the ascending colon, ? removed with a cold snare. Resected and retrieved. ? - Melanosis in the colon. ? - Diverticulosis in the sigmoid colon. ? - Internal hemorrhoids. ? - The examination was otherwise normal. Recommendation: ?- Discharge patient to home. ? - Await pathology results. ? - Repeat colonoscopy in 7-10 years for surveillance. Narrative 06/13/2024 4:[address] [facility] GI Patient Name: Leslye Dior Procedure Date: 06/13/2024 3:52 PM Date of : 1960 Age: 63 Gender: Female Note Status: Finalized Attending MD: Ayanna Garcias MD, Procedure Date No Time: 06/13/2024 Procedure: ? Colonoscopy Indications: ? Screening for colorectal malignant neoplasm Providers: ? Ayanna Garcias MD Referring MD: ?Ayanna Garcias MD Medicines: ? Monitored Anesthesia Care Complications: ? No immediate complications. Estimated blood loss: ? Minimal. Estimated Blood Loss: ? Estimated blood loss was minimal. Procedure: ? Pre-Anesthesia Assessment: ? - Prior to the procedure, a History and Physical was ? performed, and patient medications and allergies were ? reviewed. The patient is competent. The risks and ? benefits of the procedure and the sedation options and ? risks were discussed with the patient. All questions ? were answered and informed consent was obtained. ? Patient identification and proposed procedure were ? verified by the physician, the nurse, the peer financial counselor ? and the hvac refrigeration technician in the pre-procedure area in the ? endoscopy suite. Mental Status Examination: alert and ? oriented. Airway Examination: normal oropharyngeal ? airway and neck mobility. Respiratory Examination: ? clear to auscultation. CV Examination: normal. ? Prophylactic Antibiotics: The patient does not require ? prophylactic antibiotics. Prior Anticoagulants: The ? patient has taken no anticoagulant or antiplatelet ? agents. ASA Grade Assessment: II - A patient with mild ? systemic disease. After reviewing the risks and ? benefits, the patient was deemed in satisfactory ? condition to undergo the procedure. The anesthesia ? plan was to use monitored anesthesia care (MAC). ? Immediately prior to administration of medications, ? the patient was re-assessed for adequacy to receive ? sedatives. The heart rate, respiratory rate, oxygen ? saturations, blood pressure, adequacy of pulmonary ? ventilation, and response to care were monitored ? throughout the procedure. The physical status of the ? patient was re-assessed after the procedure. ? After I obtained informed consent, the scope was ? passed under direct vision. Throughout the procedure, ? the patient's blood pressure, pulse, and oxygen ? saturations were monitored continuously. The Olympus ? Colonoscope was introduced through the anus and ? advanced to the cecum, identified by appendiceal ? orifice and ileocecal valve. The colonoscopy was ? performed without difficulty. The patient tolerated ? the procedure well. The quality of the bowel ? preparation was good. Findings: ?The perianal and digital rectal examinations were ? normal. ? Three sessile polyps were found in the ascending ? colon. The polyps were 2 to 3 mm in size. These polyps ? were removed with a cold snare. Resection and ? retrieval were complete. Estimated blood loss was ? minimal. ? A diffuse area of mild melanosis was found in the ? sigmoid colon, in the descending colon and in the ? transverse colon. ? Multiple small-mouthed diverticula were found in the ? sigmoid colon. ? Internal hemorrhoids were found during retroflexion. ? The hemorrhoids were Grade I (internal hemorrhoids ? that do not prolapse). ? The exam was otherwise without abnormality. Procedure Code(s): ? --- Professional --- ? 36713, Colonoscopy, flexible; with removal of ? tumor(s), polyp(s), or other lesion(s) by snare ? technique Diagnosis Code(s): ? --- Professional --- ? D12.2, Benign neoplasm of ascending colon CPT copyright 2020 [employer]. All rights reserved. The codes documented in this report are preliminary and upon auditing coder review may be revised to meet current compliance requirements. Ayanna Garcias MD 06/13/2024 4:08:51 PM This report has been signed electronically.Ayanna Garcias MD Number of Addenda: 0 Note Initiated On: 06/13/2024 3:52 PM Scope Withdrawal Time: 0 hours 6 minutes 6 seconds Scope In: 3:57:09 PM Scope Out: 4:06:07 PM ? Endoscopy Department at [facility] - [address] [place] [address], ? [place] [address] Procedure Note Ayanna Garcias MD - 06/13/2024 [facility] GI Patient Name: Leslye Dior Procedure Date: 06/13/2024 3:52 PM Date of : 1960 Age: 63 Gender: Female Note Status: Finalized Attending MD: Ayanna Garcias MD, Procedure Date No Time: 06/13/2024 Procedure: Colonoscopy Indications: Screening for colorectal malignant neoplasm Providers: Ayanna Garcias MD Referring MD: Ayanna Garcias MD Medicines: Monitored Anesthesia Care Complications: No immediate complications. Estimated blood loss: Minimal. Estimated Blood Loss: Estimated blood loss was minimal. Procedure: Pre-Anesthesia Assessment: - Prior to the procedure, a History and Physicalwas performed, and patient medications and allergieswere reviewed. The patient is competent. The risks and benefits of the procedure and the sedation optionsand risks were discussed with the patient. Allquestions were answered and informed consent was obtained. Patient identification and proposed procedure were verified by the physician, the nurse, theanesthetist and the hvac refrigeration technician in the pre-procedure area in the endoscopy suite. Mental Status Examination: alertand oriented. Airway Examination: normal oropharyngeal airway and neck mobility. Respiratory Examination: clear to auscultation. CV Examination: normal. Prophylactic Antibiotics: The patient does notrequire prophylactic antibiotics. Prior Anticoagulants: The patient has taken no anticoagulant or antiplatelet agents. ASA Grade Assessment: II - A patient withmild systemic disease. After reviewing the risks and benefits, the patient was deemed in satisfactory condition to undergo the procedure. The anesthesia plan was to use monitored anesthesia care (MAC). Immediately prior to administration of medications, the patient was re-assessed for adequacy to receive sedatives. The heart rate, respiratory rate, oxygen saturations, blood pressure, adequacy of pulmonary ventilation, and response to care were monitored throughout the procedure. The physical status ofthe patient was re-assessed after the procedure. After I obtained informed consent, the scope was passed under direct vision. Throughout theprocedure, the patient's blood pressure, pulse, and oxygen saturations were monitored continuously. TheOlympus Colonoscope was introduced through the anus and advanced to the cecum, identified by appendiceal orifice and ileocecal valve. The colonoscopy was performed without difficulty. The patient tolerated the procedure well. The quality of the bowel preparation was good. Findings: The perianal and digital rectal examinations were normal. Three sessile polyps were found in the ascending colon. The polyps were 2 to 3 mm in size. Thesepolyps were removed with a cold snare. Resection and retrieval were complete. Estimated blood loss was minimal. A diffuse area of mild melanosis was found in the sigmoid colon, in the descending colon and in the transverse colon. Multiple small-mouthed diverticula were found inthe sigmoid colon. Internal hemorrhoids were found duringretroflexion. The hemorrhoids were Grade I (internal hemorrhoids that do not prolapse). The exam was otherwise without abnormality. Procedure Code(s): --- Professional --- 31008, Colonoscopy, flexible; with removal of tumor(s), polyp(s), or other lesion(s) by snare technique Diagnosis Code(s): --- Professional --- D12.2, Benign neoplasm of ascending colon CPT copyright 2020 [employer]. All rights reserved. The codes documented in this report are preliminary and upon auditing coder reviewmay be revised to meet current compliance requirements. Ayanna Garcias MD 06/13/2024 4:08:51 PM This report has been signed electronically.Ayanna Garcias MD Number of Addenda: 0 Note Initiated On: 06/13/2024 3:52 PM Scope Withdrawal Time: 0 hours 6 minutes 6 seconds Scope In: 3:57:09 PM Scope Out: 4:06:07 PM Endoscopy Department at [address] [id number] IMPRESSION: - Three 2 to 3 mm polyps in the ascending colon, removed with a cold snare. Resected andretrieved. - Melanosis in the colon. - Diverticulosis in the sigmoid colon. - Internal hemorrhoids. - The examination was otherwise normal. Recommendation: - Discharge patient to home. - Await pathology results. - Repeat colonoscopy in 7-10 years forsurveillance. Result [facility] Ayanna Garcias MD GI~PROCEDURE ORDERABLES Fin al Result * Lipid panel (11/24/2023) [facility] LDL/HDL Ratio 3 0 - 4 Triglycerides 40 0 - 150 mg/dL Cholesterol 175 0 - 200 mg/dL HDL 68 >=40 mg/dL LDL Cholesterol 99 0 - 100 mg/dL Blood Venous blood specimen / Unknown Result [facility] Provider LAB BLOOD ORDERABLES Luz l Result * Cervical Cancer Screening: HPV (11/11/2023) [facility] Cervical Cancer Screening: HPV abstracted; negative Result [facility] Historical [facility] [employer] Final Result * HIV Screening (10/12/2017) [facility] HIV Screening abstracted [facility] [employer] Final Result * Hepatitis C Screening (10/12/2017) [facility] Hepatitis C Screening abstracted [facility] [employer] [employer] Final Result from Last 3 Months or Most Recently Relevant to Health Maintenance Insurance [facility] Care Teams Meat Cooler Relationship Specialty Start Date End Date Karla Staton MD [address] [place] [id number] PCP - General Internal Medicine 05/31/24
--- OUTSIDE RECORDS SUMMARY | 2024-09-18 12:41 | XMS_ITS | Clinical Summary ---
Author Organization [facility] Address [address] [place] [address] Care Team Providers Care Industrial Safety And Health Technician Name Role Phone Laina Mac APRN Primary Care Provider Allergies Active Allergy Reactions Criticality Noted Date Comments Lactose Diarrhea Low 01/07/2023 Penicillins Other (See Comments) 09/04/2019 Medications Medication Sig Dispensed Refills Start Date End Date Status methotrexate (RHEUMATREX) 2.5 MG tablet Take by mouth Active loratadine (CLARITIN) 10 MG tablet Take by mouth. 05/20/2021 Active folic acid (FOLVITE) 1 MG tablet Take by mouth. Active triamcinolone (NASACORT AQ) 55 MCG/ACT Aerosol nasal spray into each nostril. 11/04/2020 Active PANTOprazole (PROTONIX) 40 MG EC tablet Take by mouth. Active fluticasone-vilantero l (Breo Ellipta) 100-25 MCG/ACT inhaler Inhale. Active albuterol (PROVENTIL HFA; VENTOLIN HFA) 108 (90 Base) MCG/ACT inhaler Inhale. 08/26/2021 Active vxxflmgv-ssqaqgpzy-bz drocortisone (CORTISPORIN) 1 % SolutionIndications:A cute otitis externa of left ear, unspecified type Administer 4 drops into the left ear 3 (three) times a day. 10 mL 01/07/2023 Active Active Problems No known active problems Social History Tobacco Use Types Packs/Day Years Used Date Smoking Tobacco: Never Assessed Sex and Gender Information Value Date Recorded Sex Assigned at Not on file Gender Identity Not on file Sexual Orientation Not on file Last Filed Vital Signs Vital Sign Reading Time Taken Comments Blood Pressure 114/65 01/07/2023 8:53 AM EDT Pulse 83 01/07/2023 8:53 AM EDT Temperature 36.6 ??C (97.9 ??F) 01/07/2023 8:53 AM ED T Respiratory Rate - - Oxygen Saturation 100% 01/07/2023 8:53 AM EDT Inhaled Oxygen Concentration - - Weight 73.9 kg (163 lb) 01/07/2023 8:53 AM EDT Height 157.5 cm (5' 2 ) 01/07/2023 8:53 AM EDT Body Mass Index 29.81 01/07/2023 8:53 AM EDT Plan of Treatment Health Maintenance Due Date Last Done Comments Hepatitis C Virus Screening 1960 COVID-19 Vaccine (#1) 10/09/1967 Pneumococcal Vaccine: Pediat frederick (0-5 Years) and At-Risk Patients (6 to 49 Years) (1 of 2 - PCV) 1968 HIV Screening 10/09/1975 DTaP/Tdap/Td Vaccines (1 - Tdap) 1981 Pneumococcal Vaccines 50+ (1 of 2 - PCV) 1981 Zoster (Shingles) Vaccine (1 of 2) 1981 Pap Smear (Ages 21-65) 10/09/1983 Mammogram 2002 Colonoscopy 10/09/2007 RSV Vaccine 60 years and old er and Patients (1 - Risk 60-74 years 1-dose series) 2022 Influenza Vaccine 02/09/2024 Hepatitis B Vaccines Aged Out No long er eligible based on patient's age to complete this topic Care Teams Industrial Safety And Health Technician Relationship Specialty Start Date End Date Laina Mac APRN [address] [place] [address] PCP - General
[2024-09-18 12:42] LABS: Erythrocyte Sedimentation Rate 9 MM/HR (0-20)
[2024-09-18 12:45] LABS: Alanine Aminotransferase 21 U/L (0-31); Aspartate Amino Transferase 26 U/L (5-31); C Reactive Protein 0.17 mg/dL (< or = 0.50); Estimated Glomerular Filt Rate > 60
== END 2024-09-18 10:35 | disposition home or self-care (01) ==
LOC: HO.LAB 10:34
PROVIDERS: PCP Internal Medicine; Visit Provider Internal Medicine Rheumatology
DX: Z79.899 Other long term (current) drug therapy (principal); Z79.60 Long term (current) use of unspecified immunomodulators and immunosuppressants
CPT/HCPCS: 36415; 82565; 84450; 84460; 85025; 85652; 86140

== ENCOUNTER 2024-09-25 08:32 | Outpatient (AMB) | payer OTHER, SELFPAY ==
--- NOTE | 2024-09-25 08:35 | A.OFFVIS_ITS ---
Vital Signs 09/25/24 08:37 Height 5 ft 5.2 in Weight 138 lb 0.5 oz BMI 22.8 BP 98/62 Blood Pressure Location Lt brachial Position Sitting Pulse 91 Pulse Source Pulse Oximeter Pulse Oximetry (%) 98 Oxygen Delivery Method Room Air Intake Visit Reasons: Follow Up 3mo Intake Note: Patient presents today for follow up on rheumatoid arthritis. Allergies No Known Allergies Allergy (Verified 09/25/24 08:38) HPI HPI Follow Up 3mo: Details: Her MTX brand changed and she has felt a change. She feels a little pain in knees, shoulders and neck. No joint swelling. Denies morning stiffness. Review of Systems Const All systems reviewed & are unremarkable except as noted in HPI and below Physical Exam Vital Signs: Last Vital Signs Pulse 91 09/25/24 08:37 BP 98/62 09/25/24 08:37 Pulse Ox 98 09/25/24 08:37 Oxygen Delivery Method Room Air 09/25/24 08:37 BMI result Body Mass Index 22.8 Const Other: General: Comfortable CVS: RRR Respiratory: clear to auscultation bilaterally. Good respiratory effort Skin: No lesions seen MSK: No tenderness on palpation of any joints. No synovitis. Normal range of motion of upper extremities and lower extremities. Assessment & Plan Assessment & Plan (1) Rheumatoid arthritis: Comment: Seronegative (RF/CCP). Positive ELICEO 1:640. Methotrexate 09/2021 to present, hydroxychloroquine May 2022 to present. She is in remission on current regimen. She has very mild leukopenia likely due to bone suppression from methotrexate. I will monitor closely. Code(s): M06.9 - Rheumatoid arthritis, unspecified Category: Medical Plan: Labs for disease and drug monitoring UTD Continue hydroxychloroquine 300 mg daily. Baseline OCT and VF 05/2023 Continue methotrexate 20 mg once weekly. Continue folic acid 1 mg daily Return to clinic in 3 months (2) Other intermission coordinator (current) drug therapy: Code(s): Z79.899 - Other skilled nursing (current) drug therapy Category: Medical Plan: See above Orders: Orders Alanine Aminotransferase Today Z79.60 - correction (current) use of unspecified immunomodulators and immunosuppressants Aspartate Amino Transferase Today Z79.60 - local company intermodal truck driver (current) use of unspecified immunomodulators and immunosuppressants Creatinine Today Z79.60 - local company intermodal truck driver (current) use of unspecified immunomodulators and immunosuppressants C Reactive Protein Today Z79.899 - Other skilled nursing (current) drug therapy Complete Blood Count Auto Diff Today Z79.60 - correction (current) use of unspecified immunomodulators and immunosuppressants Erythrocyte Sedimentation Rate Today Z79.899 - Other skilled nursing (current) drug therapy Medications: Changed From methotrexate sodium take 8 tabs weekly 20 mg (8 x 2.5 mg) PO QWEEK 96 tabs 0RF To methotrexate sodium take 8 tabs weekly. Please order MTX from prior distributer for patient. 20 mg (8 x 2.5 mg) PO QWEEK 96 tabs 0RF Coding Level of Care Code Est Pt Level 4 (15571) Complex EM visit Add On G2211 Diagnoses Rheumatoid arthritis M06.9 Other intermission coordinator (current) drug therapy Z79.895
[2024-09-25 08:37] VITALS: BP 98/62; PULSE 91; O2SAT 98; BMI 22.8
--- OUTSIDE RECORDS SUMMARY | 2024-09-25 08:50 | XMS_ITS | Clinical Summary ---
Author Organization [facility] Address [address] [place] [address] Care Team Providers Care Inspector Welded Parts Name Role Phone Laina Mac APRN Primary [...] (90 Base) MCG/ACT inhaler Inhale. 08/26/2021 Active lvduusrn-daxkdtxor-mk drocortisone (CORTISPORIN) 1 % SolutionIndications:A cute otitis [...] age to complete this topic Care Teams Inspector Welded Parts Relationship Specialty Start Date End Date Laina Mac APRN [address] [place] [address] PCP - General
--- OUTSIDE RECORDS SUMMARY | 2024-09-25 08:50 | XMS_ITS | Clinical Summary ---
Author Organization [facility] Address [address] [place] [phone] Phone Care Team Providers Care Texturing Machine Fixer Name Role Phone Karla Staton MD Primary Care Provider [phone] Allergies Active Allergy Reactions Criticality Noted Date [...] giddiness 12/07/2006 Overview (04/27/2024): seen neurologist in [place]. MRI normal in 11/2001 Encounters Date Type Department Care Team Description 08/01/2024 1:15 PM EST Office Visit Nephrology - [place] [address] [place] [address] Hossein Naik MD Nephrocalcinosis (Primary Dx); Nephrolithiasis [...] Date Site/Laterality Comments FLEXIBLE SIGMOIDOSCOPY 10/04/08 PROCEDURE: [place]Y SIGMOIDOSCOPY FLX DX W/COLLJ SPEC BR/WA IF PFRMD; COMMENT: normal COLONOSCOPY 12/19/13 PROCEDURE: HISTORICAL COLONOSCOPY; COMMENT: tics; repeat in ten yrs ESOPHAGOGASTRODUODENOSCOPY 12/19/13 PROCEDURE: [place] ESOPHAGOGASTRODUODENOSCOPY TRANSORAL DIAGNOSTIC; COMMENT: normal; nl duodenal [...] EDT Office Visit [facility] - [address] [phone] Karla Staton MD [address] [place], [place] 02/27/2025 3:00 PM EDT Office Visit Nephrology - [address] [phone] Hossein Naik MD 100 [facility] [address] [place] [address] Health Maintenance Due Date Last [...] Procedure Name Priority Date/Time Associated Diagnosis Comments EXTERNAL CLINICAL LAB 09/18/2024 MANCINI URINE CULTURE TUBE Routine 08/13/2024 11:08 [...] Recently Relevant to Health Maintenance Results * External clinical lab (09/18/2024) Provider [facility] LAB BLOOD ORDERABLES Fin al Result * Mancini urine culture tube (08/13/2024 11:08 AM EST) Extra Tube Hold for add-ons. 08/13/2024 1:02 PM EST [facility] Comment:Auto resulted. Urine Urine specimen obtained by clean catch procedure / Unknown Non-blood Collection / Unknown 08/13/2024 11:08 AM EST 08/13/2024 11:08 AM EST Hossein Naik MD LAB URINE ORDERABLES Final Resu lt [facility] [address] [place] [address], [place] [phone] * Urinalysis with reflex microscopic and culture (08/13/2024 10:41 AM EST) Specific [place] Urine 1.011 1.003 - 1.030 LAB URINALYSIS - AUTOMATED METHOD 08/13/2024 12:13 PM [facility] pH, Urine 6.0 5.0 - 8.0 pH LAB URINALYSIS - AUTOMATED METHOD 08/13/2024 12:13 PM [facility] Leukocytes, Urine Negative Negative LAB URINALYSIS - AUTOMATED METHOD 08/13/2024 12:13 PM [facility] Nitrite, Urine Negative Negative LAB URINALYSIS - AUTOMATED METHOD 08/13/2024 12:13 PM [facility] Protein, Urine Negative <=Trace mg/dL LAB URINALYSIS - AUTOMATED METHOD 08/13/2024 12:13 PM [facility] Glucose, Urine Negative Negative mg/dL LAB URINALYSIS - AUTOMATED METHOD 08/13/2024 12:13 PM [facility] Ketones, Urine Negative Negative mg/dL LAB URINALYSIS - AUTOMATED METHOD 08/13/2024 12:13 PM [facility] Urobilinogen, Urine 0.2 0.2 - 1.0 mg/dL LAB URINALYSIS - AUTOMATED METHOD 08/13/2024 12:13 PM [facility] Bilirubin, Urine Negative Negative LAB URINALYSIS - AUTOMATED METHOD 08/13/2024 12:13 PM [facility] Blood, Urine Negative Negative LAB URINALYSIS - AUTOMATED METHOD 08/13/2024 12:13 PM [facility] Urine Urine specimen obtained by clean catch procedure / Unknown Non-blood Collection / Unknown 08/13/2024 10:41 AM EST 08/13/2024 10:41 AM EST us Hossein Naik MD LAB URINE ORDERABLES Final Resu lt [facility] [address] [place] [address], [place] [phone] * (ABNORMAL) CBC auto differential (08/13/2024 10:41 AM EST) WBC 4.5(L) 4.8 - 10.8 K/mcL LAB HEMETOLOGY METHOD 08/13/2024 12:21 PM [facility] RBC 3.90 3.80 - 4.80 M/mcL LAB HEMETOLOGY METHOD 08/13/2024 12:21 PM [facility] Hemoglobin 12.5 11.5 - 16.0 g/dL LAB HEMETOLOGY METHOD 08/13/2024 12:21 PM [facility] Hematocrit 38.8 35.0 - 47.0 % LAB HEMETOLOGY METHOD 08/13/2024 12:21 PM [facility] MCV 99.2(H) 79.0 - 98.0 FL LAB HEMETOLOGY METHOD 08/13/2024 12:21 PM [facility] MCH 32.0 27.0 - 32.0 pcg LAB HEMETOLOGY METHOD 08/13/2024 12:21 PM [facility] MCHC 32.2 32.0 - 37.0 g/dL LAB HEMETOLOGY METHOD 08/13/2024 12:21 PM [facility] RDW 13.8 11.0 - 15.0 % LAB HEMETOLOGY METHOD 08/13/2024 12:21 PM [facility] Platelets 304 130 - 400 K/mcL LAB HEMETOLOGY METHOD 08/13/2024 12:21 PM [facility] MPV 11.8(H) 7.0 - 11.0 FL LAB HEMETOLOGY METHOD 08/13/2024 12:21 PM [facility] NRBC 0.0 <1.0 % LAB HEMETOLOGY METHOD 08/13/2024 12:21 PM [facility] NRBC Absolute 0.00 <0.10 K/mcL LAB HEMETOLOGY METHOD 08/13/2024 12:21 PM [facility] Neutrophils Relative 38.8 % LAB HEMETOLOGY METHOD 08/13/2024 12:21 PM [facility] Lymphocytes Relative 46.5 % LAB HEMETOLOGY METHOD 08/13/2024 12:21 PM [facility] Monocytes Relative 12.2 % LAB HEMETOLOGY METHOD 08/13/2024 12:21 PM [facility] Eosinophils Relative 1.8 % LAB HEMETOLOGY METHOD 08/13/2024 12:21 PM [facility] Basophils Relative 0.7 % LAB HEMETOLOGY METHOD 08/13/2024 12:21 PM [facility] Immature Granulocytes Relative 0.0 % LAB HEMETOLOGY METHOD 08/13/2024 12:21 PM [facility] Neutrophils Absolute 1.76 1.50 - 7.00 K/mcL LAB HEMETOLOGY METHOD 08/13/2024 12:21 PM [facility] Lymphocytes Absolute 2.10 1.00 - 5.00 K/mcL LAB HEMETOLOGY METHOD 08/13/2024 12:21 PM [facility] Monocytes Absolute 0.55 0.20 - 1.00 K/mcL LAB HEMETOLOGY METHOD 08/13/2024 12:21 PM [facility] Eosinophils Absolute 0.08 0.00 - 0.50 K/mcL LAB HEMETOLOGY METHOD 08/13/2024 12:21 PM [facility] Basophils Absolute 0.03 0.00 - 0.20 K/[facility] LAB HEMETOLOGY METHOD 08/13/2024 12:21 PM EST [facility] Immature Granulocytes Absolute 0.00 0.00 - 0.03 K/[facility] LAB HEMETOLOGY METHOD 08/13/2024 12:21 PM [facility] Blood Venous blood specimen / Unknown Venipuncture / Unknown 08/13/2024 10:41 AM EST 08/13/2024 10:41 AM EST us Hossein Naik MD LAB BLOOD ORDERABLES Final Resu lt Performing Organization Address City[facility]/ZIP Co de Phone Number [facility] [address] [place] [address], [place] [phone] * Uric acid, urine, 24H (08/13/2024 10:41 AM EST) Uric Acid, Ur 14.0 mg/dL LAB CHEMISTRY METHOD 08/13/2024 4:17 PM [facility] Uric Acid, 24H Ur 420 0 - 800 mg/24 hr LAB CHEMISTRY METHOD 08/13/2024 4:17 PM [facility] Urine Volume 3,000 mL LAB CHEMISTRY METHOD 08/13/2024 4:17 PM [facility] Collection Interval, Ur 24 hr LAB CHEMISTRY METHOD 08/13/2024 4:17 PM [facility] Urine Urine specimen from urethra / Unknown Non-blood Collection / Unknown 08/13/2024 10:41 AM EST 08/13/2024 10:41 AM EST us Hossein Naik MD LAB URINE ORDERABLES Final Resu lt Performing Organization Address [facility]/ZIP Co de Phone Number [facility] [address] [place] [address], [place] [phone] * Calcium, urine, 24H (08/13/2024 10:41 AM EST) Calcium, Ur <5.0 mg/dL LAB CHEMISTRY METHOD 08/13/2024 4:52 PM [facility] Calcium, 24H Urine <150 50 - 400 mg/24 hr LAB CHEMISTRY METHOD 08/13/2024 4:52 PM [facility] Urine Volume 3,000 mL LAB CHEMISTRY METHOD 08/13/2024 4:52 PM [facility] Collection Interval, Ur 24 hr LAB CHEMISTRY METHOD 08/13/2024 4:52 PM [facility] Urine Urine specimen from urethra / Unknown Non-blood Collection / Unknown 08/13/2024 10:41 AM EST 08/13/2024 10:41 AM EST us Hossein Naik MD LAB URINE ORDERABLES Final Resu lt [facility] [address] [place] [address], [place] [phone] * Creatinine, urine, 24H (08/13/2024 10:41 AM EST) Creatinine, Urine 32.0 mg/dL LAB CHEMISTRY METHOD 08/13/2024 4:17 PM [facility] Creatinine, 24H Ur 960 800 - 2,000 mg/24 Hr LAB CHEMISTRY METHOD 08/13/2024 4:17 PM [facility] Urine Volume 3,000 mL LAB CHEMISTRY METHOD 08/13/2024 4:17 PM [facility] Collection Interval, Ur 24 hr LAB CHEMISTRY METHOD 08/13/2024 4:17 PM [facility] Urine Urine specimen from urethra / Unknown Non-blood Collection / Unknown 08/13/2024 10:41 AM EST 08/13/2024 10:41 AM EST us Hossein Naik MD LAB URINE ORDERABLES Final Resu lt [facility] [address] [place] [address], * Microalbumin creatinine urine ratio (08/13/2024 10:41 AM EST) Creatinine, Urine 84.0 mg/dL LAB CHEMISTRY METHOD 08/13/2024 5:04 PM [facility] Microalb, Ur 6.2 0.0 - 29.0 mg/L LAB CHEMISTRY METHOD 08/13/2024 5:04 PM [facility] Microalb/Creat Ratio 7 <30 mg/g creat LAB CHEMISTRY METHOD 08/13/2024 5:04 PM [facility] Urine Urine specimen obtained by clean catch procedure / Unknown Non-blood Collection / Unknown 08/13/2024 10:41 AM EST 08/13/2024 10:41 AM EST Hossein Naik MD LAB URINE ORDERABLES Final Resu lt [facility] [address] [place] [address], * Sodium, urine, 24H (08/13/2024 10:41 AM EST) Sodium, Ur 32 mmol/L LAB CHEMISTRY METHOD 08/13/2024 4:17 PM [facility] Sodium, 24H Ur 96 40 - 220 mmol/24 hr LAB CHEMISTRY METHOD 08/13/2024 4:17 PM [facility] Urine Volume 3,000 mL LAB CHEMISTRY METHOD 08/13/2024 4:17 PM [facility] Collection Interval, Ur 24 hr LAB CHEMISTRY METHOD 08/13/2024 4:17 PM [facility] Urine Urine specimen from urethra / Unknown Non-blood Collection / Unknown 08/13/2024 10:41 AM EST 08/13/2024 10:41 AM EST us Hossein Naik MD LAB URINE ORDERABLES Final Resu lt [facility] [address] [place] [address], [place] [phone] * Oxalate, urine, 24H (08/13/2024 10:41 AM EST) Urine Volume 3,050 600 - 2000 mL 08/17/2024 12:37 PM EST [facility] Creatinine 24 Hr Urine 1.1 0.8 - 1.8 gm/24h 08/17/2024 12:37 PM EST [facility] Oxalate 24 Hr Urine 27 0 - 42 mg/day 08/17/2024 12:37 PM EST [facility] Comment: Test performed at [facility], [address] [place], [place] ??[address] ? [phone] Denice Tejada MD, PhD - Control Room Agent Urine Urine specimen from urethra / Unknown Non-blood Collection / Unknown 08/13/2024 10:41 AM EST 08/13/2024 10:41 AM EST us Hossein Naik MD LAB URINE ORDERABLES Final Resu lt [facility] [address] [place] [address] * Citrate, urine, 24H (08/13/2024 10:41 AM EST) Urine Volume 3,050 600 - 2000 mL 08/17/2024 12:32 PM EST [facility] Creatinine 24 Hr Urine 1.1 0.8 - 1.8 gm/24h 08/17/2024 12:32 PM EST [facility] Citrate Urine 24 hour 863 280 - 1240 mg/day 08/17/2024 12:32 PM EST [facility] Comment: Test performed at [facility], [address] [place], [place] ??[address] ? [phone] Denice Tejada MD, PhD - Control Room Agent Urine Urine specimen from urethra / Unknown Non-blood Collection / Unknown 08/13/2024 10:41 AM EST 08/13/2024 10:41 AM EST us Hossein Naik MD LAB URINE ORDERABLES Final Resu lt [facility] [address] [place] [address] * Renal function panel (08/13/2024 10:41 AM EST) Sodium 141 133 - 145 mmol/L LAB CHEMISTRY METHOD 08/13/2024 5:10 PM [facility] Potassium 4.4 3.5 - 5.5 mmol/L LAB CHEMISTRY METHOD 08/13/2024 5:10 PM [facility] Chloride 107 96 - 110 mmol/L LAB CHEMISTRY METHOD 08/13/2024 5:10 PM [facility] CO2 26 21 - 32 mmol/L LAB CHEMISTRY METHOD 08/13/2024 5:10 PM [facility] Anion Gap 8 3 - 11 LAB CHEMISTRY METHOD 08/13/2024 5:10 PM [facility] Glucose 90 70 - 100 mg/dL LAB CHEMISTRY METHOD 08/13/2024 5:10 PM [facility] BUN 8 5 - 25 mg/dL LAB CHEMISTRY METHOD 08/13/2024 5:10 PM [facility] Creatinine 0.72 0.50 - 1.10 mg/dL LAB CHEMISTRY METHOD 08/13/2024 5:10 PM [facility] eGFR 95 >=60 mL/min/1. 73m2 LAB CHEMISTRY METHOD 08/13/2024 5:10 PM [facility] Comment:Calculation based on the??Chronic Kidney Disease Epidemiology Collaboration (CKD-EPI) equation refit??without adjustment for race. BUN/Creatinine Ratio 11.1 LAB CHEMISTRY METHOD 08/13/2024 5:10 PM EST [facility] Albumin 3.9 3.2 - 5.0 g/dL LAB CHEMISTRY METHOD 08/13/2024 5:10 PM EST [facility] Calcium 9.5 8.5 - 10.5 mg/dL LAB CHEMISTRY METHOD 08/13/2024 5:10 PM EST [facility] Phosphorus 3.7 2.5 - 4.5 mg/dL LAB CHEMISTRY METHOD 08/13/2024 5:10 PM EST [facility] Blood Venous blood specimen / Unknown Venipuncture / Unknown 08/13/2024 10:41 AM EST 08/13/2024 10:41 AM EST us Hossein Naik MD LAB BLOOD ORDERABLES Final Resu lt [facility]) [facility] [address] [place] [address], * [place] [facility] [place] [facility] ENDOSCOPY (06/13/2024 4:07 PM EST) Anatomical Region [...] for surveillance. Narrative 06/13/2024 4:09 PM EST [facility] Patient Name: Leslye Dior Procedure Date: [...] verified by the physician, the nurse, the child psychometrist ? and the solar installation technician in the pre-procedure area in the [...] Procedure Code(s): ? --- Professional --- ? 42525, Colonoscopy, flexible; with removal of ? tumor(s), polyp(s), or other lesion(s) by snare ? technique Diagnosis Code(s): ? --- Professional --- ? D12.2, Benign neoplasm of ascending colon CPT copyright 2020 [employer]. All rights reserved. The codes documented in this report are preliminary and upon copper miner blasting review may be revised to meet current compliance requirements. Ayanna Garcias MD 06/13/2024 4:08:51 PM This report has been signed electronically.Ayanna Garcias MD Number of Addenda: 0 Note Initiated On: 06/13/2024 3:52 PM Scope Withdrawal Time: 0 hours 6 minutes 6 seconds Scope In: 3:57:09 PM Scope Out: 4:06:07 PM ? Endoscopy Department at [facility] - [address] [place] [address], ? [place] [address] Procedure Note Ayanna Garcias MD - 06/13/2024 [facility] GI Patient Name: Leslye Dior Procedure Date: [...] the physician, the nurse, theanesthetist and the solar installation technician in the pre-procedure area in the [...] without abnormality. Procedure Code(s): --- Professional --- 07935, Colonoscopy, flexible; with removal of tumor(s), polyp(s), or other lesion(s) by snare technique Diagnosis Code(s): --- Professional --- D12.2, Benign neoplasm of ascending colon CPT copyright 2020 [employer]. All rights reserved. The codes documented in this report are preliminary and upon copper miner blasting reviewmay be revised to meet current compliance requirements. Ayanna Garcias MD 06/13/2024 4:08:51 PM This report has been signed electronically.Ayanna Garcias MD Number of Addenda: 0 Note Initiated On: 06/13/2024 3:52 PM Scope Withdrawal Time: 0 hours 6 minutes 6 seconds Scope In: 3:57:09 PM Scope Out: 4:06:07 PM Endoscopy Department at [facility] - [address] [place] [phone] IMPRESSION: - Three 2 to 3 mm polyps in the ascending colon, removed with a cold snare. Resected andretrieved. - Melanosis in the colon. - Diverticulosis in the sigmoid colon. - Internal hemorrhoids. - The examination was otherwise normal. Recommendation: - Discharge patient to home. - Await pathology results. - Repeat colonoscopy in 7-10 years forsurveillance. Ayanna Garcias MD GI~PROCEDURE ORDERABLES Fin al Result * Lipid panel (11/24/2023) [facility] LDL/HDL Ratio 3 0 - 4 Triglycerides 40 0 - 150 mg/dL Cholesterol 175 0 - 200 mg/dL HDL 68 >=40 mg/dL LDL Cholesterol 99 0 - 100 mg/dL Blood Venous blood specimen / Unknown Result [facility] Provider LAB BLOOD ORDERABLES Luz l Result * Cervical Cancer Screening: HPV (11/11/2023) [facility] Cervical Cancer Screening: HPV abstracted; negative Result [facility] Historical Provider HEALTH MAINTENANCE Final Result * HIV Screening (10/12/2017) [facility] HIV Screening abstracted [facility] Provider HEALTH MAINTENANCE Final Result * Hepatitis C Screening (10/12/2017) [facility] Hepatitis C Screening abstracted us Historical Provider HEALTH MAINTENANCE Final Result from Last 3 Months or Most Recently Relevant to Health Maintenance Insurance [facility] Care Teams Texturing Machine Fixer Relationship Specialty Start Date End Date Karla Staton MD [address] [place] [address] PCP - General Internal Medicine 05/31/24
--- OUTSIDE RECORDS SUMMARY | 2024-09-25 08:50 | XMS_ITS | Clinical Summary ---
Author Organization [facility], Address [address] [place] [address] [place] [address] Phone Care Team Providers Care Flour Broker Name Role Phone Bruno Hawley Primary Care Provider [phone] Allergies Active Allergy Reactions Criticality Noted Date [...] Only [facility] [address] [facility] [address] [place] [address] Hossein Naik MD from Last 3 Months [...] LEVEL (HC) (08/13/2024 10:41 AM EST) Specific Harvey 1.011 1.003 - 1.030 [facility] pH Urine 6.0 5.0 - 8.0 pH [facility] LEUKOCYTES, URINE Negative Negative [facility] Nitrite, Urine Negative Negative [facility] Protein, Urine Negative <=Trace mg/dL [facility] Glucose Urine Negative Negative mg/dL [facility] Ketones, Urine Negative Negative mg/dL [facility] Urobilinogen Urine 0.2 0.2 - 1.0 mg/dL [facility] Bilirubin Urine Negative Negative [facility] Blood Urine Negative Negative [facility] 08/13/2024 10:4 1 AM EST 08/13/2024 11:49 AM EST us Hossein Naik MD LAB [id number] LICITED RESULTS Final Result [facility] [address] [place] [address] * (ABNORMAL) CBC auto differential (08/13/2024 10:41 AM EST) WBC 4.5(L) 4.8 - 10.8 K/mcL [facility] RBC 3.90 3.80 - 4.80 M[facility] Hgb 12.5 11.5 - 16.0 g/dL [facility] Hematocrit 38.8 35.0 - 47.0 % [facility] MCV 99.2(H) 79.0 - 98.0 FL [facility] MCH 32.0 27.0 - 32.0 pcg [facility] MCHC 32.2 32.0 - 37.0 g/dL [facility] RDW 13.8 11.0 - 15.0 % [facility] Platelets 304 130 - 400 [facility] MPV 11.8(H) 7.0 - 11.0 FL [facility] nRBC Count 0.0 <1.0 % [facility] NRBC Absolute 0.00 <0.10 K/mcL [facility] Bands Relative 38.8 % [facility] Lymphocyte Realative Percent 46.5 % [facility] Monocyte Relative Percent 12.2 % [facility] Eosinophil Relative Percent 1.8 % [facility] Basophils Relative Diff 0.7 % [facility] Immature Granulocytes 0.0 % [facility] Neutrophils Absolute 1.76 1.50 - 7.00 [facility] Lymphocytes Absolute 2.10 1.00 - 5.00 [facility] Monocytes Absolute 0.55 0.20 - 1.00 [facility] Eosinophil Absolute 0.08 0.00 - 0.50 [facility] Basophil ABS 0.03 0.00 - 0.20 [facility] Immature Grans (Absolute) 0.00 0.00 - 0.03 [facility] 08/13/2024 10:4 1 AM EST 08/13/2024 11:49 AM EST Hossein Naik MD LAB BLOOD ORDERABLES Final Resu lt Performing Organization Address City/[facility]/ZIP Co de Phone Number [facility] [address] [place] [address] * Urine Uric Acid, 24 hour (08/13/2024 10:41 AM EST) Uric Acid, Ur 14.0 mg/dL [facility] Uric Acid, 24H Ur 420 0 - 800 mg/24 hr [facility] Urine Volume 3,000 mL [facility] Collection Interval, Ur 24 hr [facility] 08/13/2024 10:4 1 AM EST 08/13/2024 11:46 AM EST us Hossein Naik MD LAB URINE ORDERABLES Final Resu lt Performing Organization Address City/[facility]/ZIP Co de Phone Number [facility] [address] [place] [address] * Urine Calcium, 24 hour (08/13/2024 10:41 AM EST) Calcium, Ur <5.0 mg/dL [facility] Calcium, 24H Urine <150 50 - 400 mg/24 hr [facility] Urine Volume 3,000 mL [facility] Collection Interval, Ur 24 hr [facility] 08/13/2024 10:4 1 AM EST 08/13/2024 11:46 AM EST us Hossein Naik MD LAB URINE ORDERABLES Final Resu lt [facility] [address] [place] [address] * Creatinine, urine, 24 hour (08/13/2024 10:41 AM EST) Creatinine, Urine 32.0 mg/dL [facility] Creatinine, 24H Ur 960 800 - 2,000 mg/24 Hr [facility] Urine Volume 3,000 mL [facility] Collection Interval, Ur 24 hr [facility] 08/13/2024 10:4 1 AM EST 08/13/2024 11:46 AM EST us Hossein Naik MD LAB URINE ORDERABLES Final Resu lt [facility] [address] [place] [address] * Urine Albumin / Creatinine Ratio (08/13/2024 10:41 AM EST) Creatinine, Urine 84.0 mg/dL [facility] Microalbumin Urine Random 6.2 0.0 - 29.0 mg/L [facility] Microalbumin/Crea tinine Ratio 7 <30 mg/g creat [facility] 08/13/2024 10:4 1 AM EST 08/13/2024 11:49 AM EST us Hossein Naik MD LAB URINE ORDERABLES Final Resu lt Performing Organization Address [facility]/ZIP Co de Phone Number [facility] [address] [place] [address] * Urine Sodium, 24 hour (08/13/2024 10:41 AM EST) Sodium, Ur 32 mmol/L [facility] Sodium, 24H Ur 96 40 - 220 mmol/24 hr [facility] Urine Volume 3,000 mL [facility] Collection Interval, Ur 24 hr [facility] 08/13/2024 10:4 1 AM EST 08/13/2024 11:46 AM EST us Hossein Naik MD LAB URINE ORDERABLES Final Resu lt Performing Organization Address [facility] de Phone Number [facility] [address] [place] [address] * Urine Oxalate, 24 hour (08/13/2024 10:41 AM EST) 24 HR Urine Volume 3,050 600 - 2000 mL [facility] Creatinine, 24H Ur 1.1 0.8 - 1.8 gm/24h [facility] Oxalate, 24H Ur 27 0 - 42 mg/day [facility] Comment: Test performed at [facility], [address] [place] [place], [place] ? [phone] Denice Tejada MD, PhD - Command And Control Officer 08/13/2024 10:4 1 AM EST 08/13/2024 12:30 PM EST us Hossein Naik MD LAB URINE ORDERABLES Final Resu lt [facility] [address] [place] [address] * Citrate, urine, 24 hour with Creatinine (08/13/2024 10:41 AM EST) 24 HR Urine Volume 3,050 600 - 2000 mL [facility] Creatinine, 24H Ur 1.1 0.8 - 1.8 gm/24h [facility] Citrate, 24H Ur 863 280 - 1,240 mg/day [facility] Comment: Test performed at [facility], [address] [place], [place] ??[address] ? [phone] Denice Tejada MD, PhD - Command And Control Officer 08/13/2024 10:4 1 AM EST 08/13/2024 12:30 PM EST us Hossein Naik MD LAB URINE ORDERABLES Final Resu lt Performing Organization Address [facility] de Phone Number [facility] [address] [place] [address] * Renal Function Panel (08/13/2024 10:41 AM EST) Sodium 141 133 - 145 mmol/L [facility] Potassium 4.4 3.5 - 5.5 mmol/L [facility] Chloride 107 96 - 110 mmol/L [facility] Bicarbonate (CO2) 26 21 - 32 mmol/L [facility] Anion Gap 8 3 - 11 [facility] Glucose 90 70 - 100 mg/dL [facility] BUN 8 5 - 25 mg/dL [facility] Creatinine Serum 0.72 0.50 - 1.10 mg/dL [facility] eGFR 95 >=60 mL/min/1. 73m2 [facility] Comment:Calculation based on the?Chronic Kidney Disease Epidemiology Collaboration (CKD-EPI) equation refit?without adjustment for race. BUN/Creatinine Ratio 11.1 [facility] Albumin 3.9 3.2 - 5.0 g/dL [facility] Calcium 9.5 8.5 - 10.5 mg/dL [facility] Phosphorus 3.7 2.5 - 4.5 mg/dL [facility] 08/13/2024 10:4 1 AM EST 08/13/2024 2:38 PM EST us Hossein Naik MD LAB BLOOD ORDERABLES Final Resu lt [facility] ([email or web address] [address] [place] [address] from Last [address] [place] [address] Care Teams Flour Broker Relationship Specialty Start Date End Date Bruno Hawley [address] [place] [id number] PCP - General Internal Medicine 09/12/19
--- OUTSIDE RECORDS SUMMARY | 2024-09-25 08:50 | XMS_ITS | Data Portability ---
Author Organization TATI Landrum s, [address] Address [address] [place] [address] Care Team Providers Care Construction Specialist Name Role Phone [facility] Care Provider Assessment No assessment recorded. Plan of Treatment Reminders Order Date Submit Date Provider Last Modified By Organization Details Last Modified Time Details Appointments None recorded. Lab rapid flu (A+B) 2023 024 [facility] [address], [address] [place], [address], 4 16:17:55 SARS CoV 2 (COVID-19) Ag, QL, IA, upper respiratory specimen 2023 024 [facility] [address], [address] [place], [address], 4 16:17:58 Referral None recorded. Procedures None recorded. Surgeries None recorded. Imaging None recorded. Medication Orders albuterol sulfate 2.5 mg/3 mL (0.083 %) solution for nebulizatio n 2023 024 [email or web address] Not available 4 17:42:55 ipratropium bromide 0.02 % solution for inhalation 2023 024 [email or web address] Not available 4 17:43:40 benzonatate 200 mg capsule 2023 024 [facility]acy #[id number], [address] , [address], 4 16:19:27 albuterol sulfate HFA 90 mcg/actuati on aerosol inhaler 2023 024 [facility]/Pharmacy #1291, [address] , [address], 4 16:19:28 prednisone 20 mg tablet 2023 024 [facility]/Pharmacy #1291, [address] , [address], 4 16:19:28 Allergy Relief (fluticason e) 50 mcg/actuati on nasal spray,suspe nsion 2023 024 [email or web address] [address] , [address], 4 16:39:20 benzonatate 200 mg capsule 2023 024 [facility] [address] , [address], 4 13:04:06 Patient TargetsNo targets recorded. Patient Instructions Encounter Date Encounter Id Patient Instructions Last Modified By Organization Details Last Modified Time 01/15/2024 [id number] upper respirator y infection (cold): care instructions [email or web address] Not available 01/15/2024 13:04:04 01/21/2024 [id number] 9 things to do i f you've been exposed to covid-19 Not available 01/21/2024 16:17:52 bronchitis: care instructions Not available 01/21/2024 16:17:52 Reason for Referral None Reported. Results Created Date Observation Date Name Description Value Unit Range Abnormal Flag Note LastModifiedBy Organization Detail LastModifiedTime 01/21/20 24 01/21/2024 SARS CoV 2 (COVI D-19) Ag, QL, IA, upper respi rator y speci men Unknown Analyte negati ve Not Available [address] [facility], , [address], 01/21/2024 15:45:02 01/21/20 24 01/21/2024 SARS CoV 2 (COVI D-19) Ag, QL, IA, upper respi rator y speci men Unknown Analyte yes Not Available [address] [place] [address] [address] [place], [address], 01/21/2024 15:45:02 01/21/20 24 01/21/2024 rapid flu (A+B) Unknown Analyte negati ve Not Available [address] [place], [address], 01/21/2024 15:44:51 01/21/20 24 01/21/2024 rapid flu (A+B) Unknown Analyte negati ve Not Available [address] [place], [address], 01/21/2024 15:44:51 01/21/20 24 01/21/2024 rapid flu (A+B) Unknown Analyte yes Not Available [address] [place] [address] [address] [place], [address], 01/21/2024 15:44:51 Result Notes None recorded. Problems Name Problem SNOMED Code Status Onset Date Resolution Date Notes Provider Name and Address Organization Details Recorded Time Asthma 292901399 Active 024 Ariane bullard PA - [facility] 4 12:50:21 Rheumatoid arthritis 36728345 Active 024 Ariane bullard PA - [facility] 4 12:51:18 Acute bronchitis 40029245 Active 024 Aly Woo [facility] [address] [facility], [address] , [place] - [facility] 4 16:16:36 Problem Notes None recorded. Medical Equipment None Reported. Allergies No known drug allergies Medications Name Sig Start Date Stop Date Status Note LastModified by Organization Details LastModified Time rabeprazo le 20 mg tablet,de layed release TAKE 1 TABLET BY MOUTH EVERY DAY IN THE MORNING ON EMPTY STOMACH, 30 MINS BEFORE MEALS 01/14 completed Not Available Not Available Not Available albuterol sulfate 2.5 mg/3 mL (0.083 %) solution for nebulizat ion Inhale 2.5 mg every day by nebuliza tion route as directed for 1 day. 2023 active Billable unit is always one. Units are not the dose. Not Available Not Available Not Available benzonata te 200 mg capsule TAKE 1 CAPSULE 3 TIMES A DAY BY ORAL ROUTE NEEDED FOR 5 DAYS, FOR COUGH. active Not Available Not Available No t Available senna 8.6 mg tablet TAKE 1 TABLET BY MOUTH EVERY DAY active Not Available Not Available No t Available prednison e 20 mg tablet TAKE 2 TABLETS EVERY DAY BY ORAL ROUTE IN THE MORNING FOR 4 DAYS, FOR INFLAMMA TION. active Not Available Not Available No t Available doxycycli ne monohydra te 100 mg tablet TAKE 1 TABLET BY MOUTH TWICE A DAY FOR 10 DAYS active Not Available Not Available No t Available triamcino lone acetonide 0.1 % topical cream APPLY CLARITZA LY TO AFFECT AREA(S) TWICE DAILY FOR UP TO 2 WEEKS. active Not Available Not Available No t Available famotidin e 20 mg tablet TAKE 1 TABLET BY MOUTH TWICE A DAY active Not Available Not Available No t Available methotrex ate sodium 2.5 mg tablet TAKE 8 TABLETS ONCE A WEEK ON TUESDAY active Not Available Not Available No t Available pantopraz ole 40 mg tablet,de layed release PLEASE SEE ATTACHED FOR DETAILED DIRECTIO NS active Not Available Not Available No t Available neomycin- polymyxin -dexameth 3.5 mg/mL-10, 000 unit/mL-0 .1% eye drops INSTILL 1 DROP INTO BOTH EYES FOUR TIMES A DAY USE FOR TWO WEEKS THEN STOP active Not Available Not Available No t Available clotrimaz ole-betam ethasone 1 %-0.05 % topical cream APPLY SPARINGL Y TO AFFECTED AREA TWICE A DAY FOR UP TO 2 WEEKS active Not Available Not Available No t Available docusate sodium 100 mg capsule TAKE 1 CAPSULE BY MOUTH TWICE A DAY 01/14 completed Not Available Not Available Not Available folic acid 1 mg tablet TAKE 1 TABLET BY MOUTH EVERY DAY active Not Available Not Available No t Available mont[address]uka st 10 mg tablet TAKE 1 TABLET BY MOUTH EVERYDAY AT BEDTIME 01/14 completed Not Available Not Available Not Available azelastin e 137 mcg (0.1 %) nasal spray INHALE 1 TO 2 SPRAY TWO TIMES A DAY IN EACH NOSTYRIL active Not Available Not Available No t Available hydroxych loroquine 200 mg tablet TAKE 1 & 1/2 TABLET BY MOUTH EVERY DAY active Not Available Not Available No t Available methylpre dnisolone 4 mg tablets in a dose pack TAKE 6 TABLETS ON DAY 1 DIRECTED ON PACKAGE AND DECREASE BY 1 TAB EACH DAY FOR A TOTAL OF 6 DAYS 01/14 completed Not Available Not Available Not Available albuterol sulfate HFA 90 mcg/actua tion aerosol inhaler INHALE 2 PUFFS EVERY 4 HOURS BY INHALATI ON ROUTE NEEDED FOR 10 DAYS, FOR WHEEZING , COUGH. active Not Available Not Available No t Available ondansetr on 4 mg disintegr ating tablet TAKE 1 TABLET BY MOUTH EVERY 6 HOURS NEEDED FOR NAUSEA/V OMITING active Not Available Not Available No t Available fluticaso ne propionat e 50 mcg/actua tion nasal spray,[employer] pension SPRAY 1 SPRAY INTO EACH NOSTRIL EVERY DAY BY INTRANAS AL ROUTE DIRECTED FOR NASAL CONGESTI ON. active Not Available Not Available No t Available loratadin e 10 mg tablet TAKE 1 TABLET BY MOUTH EVERY DAY *NC* active Not Available Not Available No t Available ipratropi um bromide 0.02 % solution for inhalatio n Inhale 0.5 mg every day by inhalati on route as directed for 1 day. 2023 active Billable unit is always one. Units are not the dose. Not Available Not Available Not Available cyclobenz aprine 5 mg tablet TAKE 1 TABLET BY MOUTH 3 TIMES DAILY NEEDED FOR MUSCLE SPASMS FOR UP TO 7 DAYS. 01/14 completed Not Available Not Available Not Available Breo Ellipta 100 mcg-25 mcg/dose powder for inhalatio n INHALE 1 PUFF INTO THE LUNGS DAILY. RINSE MOUTH WITH WATER AND EXPECTOR ATE AFTER EACH DOSE active Not Available Not Available No t Available Breo Ellipta 200 mcg-25 mcg/dose powder for inhalatio n INHALE ONE PUFF INTO THE LUNGS ONCE DAILY active Not Available Not Available No t Available albuterol 90 mcg-budes onide 80 mcg/actua tion HFA aerosol inhaler Inhale by inhalati on route. active Not Available Not Available No t Available Vitals Date Recorded Body height Body mass index (BMI) Body weight Respiratory rate Pain severity - 0-10 verbal numeric rating [Score] - Reported Oxygen saturation Oxygen saturation in Arterial blood by Pulse oximetry Heart rate Body temperature Systolic blood pressure Diastolic blood pressure Provider Name and Address Organization Details Last Updated DateTime 157.48 cm 27.1 kg/m2 46942.6 7 g 18 /min 5 98 % 98 % 100 /min 98.4 [degF] 128 mm[Hg] 76 mm[Hg] Ariane Raphael PA [facility] 12:55:47 Date Recorded Body height Body weight Oxygen saturation Oxygen saturation in Arterial blood by Pulse oximetry Heart rate Pain severity - 0-10 verbal numeric rating [Score] - Reported Respiratory rate Body temperature Systolic blood pressure Diastolic blood pressure Provider Name and Address Organization Details Last Updated DateTime 4 157.48 cm 12953.6 7 g 99 % 99 % 103 /min 5 18 /min 98.3 [degF] 125 mm[Hg] 65 mm[Hg] Ariane Bedoya PA [facility] 15:41:16 Social History Question Answer Notes LastModified by Organizat ion Details LastModified Time Tobacco Smoking Status Never Smoker Ariane bullard PA - [facility] 01/15/2024 12:52:24 What Is Your Level Of Alcohol Consumption? None [email or web address] Information not available 01/15/2024 Are You Currently Employed? No Retired [email or web address] Information not available 01/15/2024 What Is The Highest Grade Or Level Of School You Have Completed Or The Highest Degree You Have Received? [id number] [email or web address] Information not available 01/15/2024 Have You Had A Flu Shot This Season? Yes [email or web address] Information not available 01/15/2024 If No, Would You Like A Flu Shot Today? No [email or web address] Information not available 01/15/2024 Have You Had Direct Contact, Or Contact During Intimacy, With Monkeypox Rash, Scabs, Or Body Fluids From A Person With Monkeypox? No [email or web address] Information not available 01/15/2024 What Was The Date Of Your Most Recent Tobacco Screening? 01/21/2024 [email or web address] Information not available 01/21/2024 Do You Use Any Illicit Or Recreational Drugs? No [email or web address] Information not available 01/15/2024 Have You Recently Traveled Abroad? No [email or web address] Information not available 01/15/2024 Are You Currently In School? No [email or web address] Information not available 01/15/2024 Do You Or Have You Ever Used Any Other Forms Of Tobacco Or Nicotine? No [email or web address] Information not available 01/15/2024 Sex: Unknown Functional Status None recorded. Mental Status None recorded. Family History Relationship Description Onset Age of this Age Resolved Age Notes LastModified by Organization Details LastModified Time Father No current problems or disability [email or web address] Not available 01/2024 12:51:28 Mother No current problems or disability [email or web address] Not available 01/2024 12:51:28 Medical History No medical history recorded. Gynecological History Statement/Question Response Is there any chance of ? No Obstetrics History GPAL:G 0 P 0 0 0 0 Past Encounters Encounter ID Performer Location Encounter Start Date Encounter Closed Date Diagnosis/Indication Diagnosis SNOMED-CT Code Diagnosis ICD10 Code Diagnosis Note [id number] [address] [place] [address] 02/14/2019 10:30:03 02/14/2019 10:44:33 [id number] [address] [place] [address] 03/04/2018 09:12:01 03/04/2018 10:29:33 [id number] [address] [place] [address] 07/03/2019 08:10:30 07/03/2019 08:52:24 [id number] [address] [place] [address] 02/02/2021 16:20:51 02/02/2021 17:45:33 [id number] TATI Turner [address] [facility] [address] [place] [address] 01/15/2024 12:31:32 01/15/2024 13:04:55 Upper respiratory infection 02175465 J06.9 Patient presented with symptoms of upper respirator y infection. Advised to drink plenty of fluids, run a cool-mist humidifier in room at night, gargle salt water for sore throat, and get plenty of rest. Patient should avoid over-exert ion and reduce exposure to irritants such as smoke, cold, dry air, and dust.Treat ment currently involves symptomati c relief. Nasal sprays like nasonex and flonase (or generic) as well as neti pot to help clear sinuses Patient may take acetaminop hen or ibuprofen as directed to reduce fever and body aches.Anti histamine and decongesta nt usage was discussed and recommenda tions made.Sierra carlson understood these instructio ns and will follow up in the office in 10 days to 2 weeks if symptoms not improving. ER if any shortness of breath/oralia st pain or worsening. Thank you for using [facility] today, please feel free to contact our office if you have any questions or concerns. [id number] Aly Woo NP [address] [facility] [address] [place] [address] 01/21/2024 14:52:23 01/21/2024 16:43:45 Exposure to SARS-CoV-2 803610112 Z20.822 Acute bronchitis 1678943 2 J20.9 Acute bronchitis is a common clinical condition characteri zed by an acute onset but persistent cough, with or without sputum production . It is typically self-limit ed, resolving within one to three weeks. Symptoms result from inflammati on of the lower respirator y tract and are most frequently due to viral infection. Treatment is focused on patient education and supportive care. Antibiotic s are not needed for the great majority of patients with acute bronchitis but are greatly overused for this condition. Reducing antibiotic use for acute bronchitis is a national and internatio [facility] health care priority. In most patients, the cough persists for 1 to 3 weeks, with a average duration of 18 days. The cough may be associated with either purulent or nonpurulen t sputum production The presence of purulent sputum is a nonspecifi c finding and does not appear to be predictive of bacterial infection or that antibiotic s are needed. For the great majority of patients, use of antibiotic s does not hasten recovery or prevent complicati ons but puts patients at increased risk of adverse effects including potentiall y severe complicati ons such as Clostridio ides difficile infection and anaphylaxi s. Non-Pharma cological treatment for coughin . Throat lozenges2. Hot tea3. Honey4. Smoking cessation5 . Avoidance of second hand smoke. Pharmacolo gical Treatment: 1. Robitussin or guafenesin 2. Antihistam ines3. dextrometh orphan I would plan on being seen again if any of the following symptoms develop:1. Fever (100.5)2. Shortness of breath3. Wheezing4. Worsening Cough. I would go to the ER if you develop:1. Severe Shortness of breath2. Chest Pain3. Wheezing4. Coughing up Blood Health Concerns Section Related Observation LastModified by Organization Detai ls LastModified Time None Recorded Concern Status LastModified by Organization Details LastModified Time None Recorded Advance Directives Directive None Recorded Payers Encounter Date Sequence Insurance Name Policy Number Policy Seay Covered Member ID Seay Member ID Guarantor Name 02/14/2019 1 [facility] [id number] 1 [place] Hernan Morgan [id number] Leslye Becerra-Debora s 07/03/2019 1 [facility] [id number] 1 [place] Hernan Tseis [id number] Leslye Washingtonell-Debora s 02/02/2021 1 [facility] [id number] 1 [place] Morgan [id number] Leslye Washingtonell-Debora s 01/15/2024 1 [facility] [id number] 1 [place] Hern[place] Morgan [id number] Leslye Washingtonell-Debora s 01/21/2024 1 [facility] [id number] 1 [place] [employer] [employer] Morgan [id number] Leslye Becerra-Debora s Notes Date Note Type Note Provider Name and Address Organization Details Recorded Time 4 text/html 63 y/o female here with 4 days of cough and congestion. Has asthma, had a bit of wheeze but didn't need her inhaler. TATI Turner [address] [place], [address], PA - [facility] 01/15/2024 13:06:09 text/html CoughReported bypatient.source of patient informationInformation obtained from patient; Patient arrived at Urgent Care ambulatory; learning styles: auditory Quality:harsh;dry; intermittent; symptoms worse with lying down Severity:worsening;pain with cough; moderate Duration:constant; symptoms lasting over 2 weeks Timing:worsening; gradual Context:Patient denies vaping; non-smoker;history of bronchitis Modifying Factors:at night Associated Symptoms:no fever; no chills; no chest pain; no heartburn; no nausea; no vomiting; no edema; no agitation; no wheezing; no post nasal drip;hurts to breath Aly Woo NP [address] [place], [address], [place] - [facility] 01/21/2024 16:39:43 OBGyn Episode No OBEpisode recorded.
--- OUTSIDE RECORDS SUMMARY | 2024-09-25 08:50 | XMS_ITS | Encounter Summary ---
Author Organization [facility] Address [address] [place] [address] Phone Care Team Providers Care Principal Archaeologist Name Role Phone Bruno Hawley Primary Care Provider [phone] Encounter Details Date Type Department Care Team (Late st Contact Info) Description 01/07/2022 Documentation Only [facility] [address] [place] [address] Jon Gomez MD [address] [place] [address] Social History Tobacco Use Types [...] on filedocumented in this encounter Care Teams Principal Archaeologist Relationship Specialty Start Date End Date Bruno Hawley [address] [place] [address] PCP - General Internal Medicine 09/12/19 documented as of this encounter
--- OUTSIDE RECORDS SUMMARY | 2024-09-25 08:50 | XMS_ITS | Encounter Summary ---
Author Organization [facility] Address [address] [place] [address] Phone Care Team Providers Care Gyro Mechanic Name Role Phone Bruno Hawley Primary Care Provider [phone] Encounter Details Date Type Department Care Team (Late st Contact Info) Description 08/09/2022 Documentation Only [facility] [address] [place] [address] Jon Gomez MD [address] [place] [address] Social History Tobacco Use Types [...] on filedocumented in this encounter Care Teams Gyro Mechanic Relationship Specialty Start Date End Date Bruno Hawley [address] [place] [address] PCP - General Internal Medicine 09/12/19 documented as of this encounter
== END 2024-09-25 09:02 | disposition home or self-care (01) ==
LOC: HO.RHES 08:33
PROVIDERS: PCP Internal Medicine; Visit Provider Internal Medicine Rheumatology
DX: M06.9 Rheumatoid arthritis, unspecified (principal); Z79.899 Other long term (current) drug therapy
CPT/HCPCS: 99214

== ENCOUNTER → 2024-09-25 08:32 | Outpatient (BNVA) | payer OTHER, SELFPAY | PROVIDERS: PCP Internal Medicine; Visit Provider Internal Medicine Rheumatology ==

== ENCOUNTER 2024-12-19 11:26 | Outpatient (REF) | payer OTHER, SELFPAY ==
[2024-12-19 11:41] LABS: MANUAL DIFF FLAG NO
[2024-12-19 12:27] LABS: Basophils Percent Auto 0.8 % (0-2); Eosinophils Absolute Auto 0.1 X10*3/uL (0.0-0.4); Eosinophils Percent Auto 1.6 % (0-4); Hematocrit 39.3 % (37.0-47.0); Hemoglobin 12.7 g/dl (12.0-16.0); Lymphocytes Absolute Auto 1.5 X10*3/uL (1.2-4.9); Lymphocytes Percent Auto 40.7 % (20-40); Mean Corpuscular HGB Conc 32.3 g/dl (31.0-35.0); Mean Corpuscular Hemoglobin 30.9 pg (27.0-33.0); Mean Corpuscular Volume 95.6 fL (80.0-98.0); Mean Platelet Volume 11.2 fL (9.4-12.3); Monocytes Absolute Auto 0.5 X10*3/uL (0.1-1.2); Monocytes Percent Auto 12.5 % (2-11); Neutrophils Absolute Auto 1.7 x10*3/uL (2.0-8.3); Neutrophils Percent Auto 44.4 % (45-73); Platelet Count 287 X10*3/uL (160-400); Red Blood Count 4.11 X10*6/uL (4.20-5.50); Red Cell Distribution Width 13.4 % (11.0-16.0); White Blood Count 3.8 X10*3/uL (4.8-10.8)
[2024-12-19 12:39] LABS: Alanine Aminotransferase 19 U/L (0-31); Aspartate Amino Transferase 19 U/L (5-31); C Reactive Protein 0.21 mg/dL (< or = 0.50); Estimated Glomerular Filt Rate > 60
[2024-12-19 13:05] LABS: Erythrocyte Sedimentation Rate 7 MM/HR (0-20)
--- OUTSIDE RECORDS SUMMARY | 2024-12-19 13:12 | XMS_ITS | Clinical Summary ---
Author Organization [facility], Address [address] [place] [address] [place] [address] Phone Care Team Providers Care Mri Technologist Name Role Phone Bruno Hawley Primary Care Provider [phone] Allergies Active Allergy Reactions Criticality Noted Date [...] of liver 09/04/2019 Vitamin D deficiency 09/04/2019 Immunizations Immunization Administration Dates Next Due Influenza, Recombinant, Quadrivalent, [...] Comments Breast Cancer Screening 1960 Pneumococcal Vaccine: 50+ Ye ars (1 of 2 - PCV) 1981 Colorectal Cancer Screening: Annual FOBT 10/09/2011 Colorectal Cancer Screening: Colonoscopy 10/09/2011 Colorectal Cancer Screening: Sigmoidoscopy 10/09/2011 Influenza Vaccine (Season Ended) 2025 05/26/20 20 Hepatitis B Vaccine Aged Out No longe r eligible based on patient's age to complete this topic Insurance Health Care Teams Mri Technologist Relationship Specialty Start Date End Date Bruno Hawley [address] [place] [address] PCP - General Internal Medicine 09/12/19
== END 2024-12-19 11:27 | disposition home or self-care (01) ==
LOC: HO.LAB 11:26
PROVIDERS: PCP Internal Medicine; Visit Provider Internal Medicine Rheumatology
DX: Z79.899 Other long term (current) drug therapy (principal); Z79.60 Long term (current) use of unspecified immunomodulators and immunosuppressants
CPT/HCPCS: 36415; 82565; 84450; 84460; 85025; 85652; 86140

== ENCOUNTER 2024-12-26 07:55 | Outpatient (AMB) | payer OTHER, SELFPAY ==
--- NOTE | 2024-12-26 07:58 | A.OFFVIS_ITS ---
Vital Signs 12/26/24 08:00 Height 5 ft 5.2 in Weight 133 lb BMI 22.0 BP 98/70 Blood Pressure Location Lt brachial Position Sitting Pulse 79 Pulse Source Pulse Oximeter Pulse Oximetry (%) 98 Oxygen Delivery Method Room Air Intake Visit Reasons: 3 months Intake Note: Patient presents today for follow up on rheumatoid arthritis. Accompanied by: Self / Same As Patient Allergies No Known Allergies Allergy (Verified 12/26/24 08:07) HPI HPI 3 months: Details: Feels well. No recent infection. No morning stiffness. Physical Exam Vital Signs: BMI result Body Mass Index 22.0 Const Other: General: Comfortable CVS: RRR Respiratory: clear to auscultation bilaterally. Good respiratory effort Skin: No lesions seen MSK: No tenderness on palpation of any joints. No synovitis. Normal range of motion of upper extremities and lower extremities. Assessment & Plan Assessment & Plan (1) Rheumatoid arthritis: Comment: She is in remission on current regimen. 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 I will monitor closely. She is planning a ministry trip to [facility] in requires yellow fever vaccination, which is a live vaccine. We discuss the possibility of reactivation of virus on her immunosuppressive therapy regimen. She would need to hold methotrexate for 1 month prior to yellow fever vaccination, which poses a risk of flaring underlying RA necessitating course of prednisone. Patient will like to think about it. Rheumatology history: Seronegative (RF/CCP). Positive ELICEO 1:640. Methotrexate 09/2021 to present, hydroxychloroquine May 2022 to present. Code(s): M06.9 - Rheumatoid arthritis, unspecified Category: Medical Plan: Labs for disease and drug monitoring UTD Continue hydroxychloroquine 300 mg daily. Baseline OCT and VF 05/2023 Continue methotrexate 20 mg once weekly. Continue folic acid 1 mg daily Return to clinic in 3 months (2) Other intermediate (current) drug therapy: Code(s): Z79.899 - Other director long term care (current) drug therapy Category: Medical Plan: See above Orders: Orders Complete Blood Count Man Dif Today M06.9 - Rheumatoid arthritis, unspecified, Z79.899 - Other intermediate (current) drug therapy Aspartate Amino Transferase Today M06.9 - Rheumatoid arthritis, unspecified, Z79.899 - Other intermediate (current) drug therapy Creatinine Today M06.9 - Rheumatoid arthritis, unspecified, Z79.899 - Other director long term care (current) drug therapy C Reactive Protein Today M06.9 - Rheumatoid arthritis, unspecified, Z79.899 - Other director long term care (current) drug therapy Alanine Aminotransferase Today M06.9 - Rheumatoid arthritis, unspecified, Z79.899 - Other intermediate (current) drug therapy Erythrocyte Sedimentation Rate Today M06.9 - Rheumatoid arthritis, unspecified, Z79.899 - Other intermediate (current) drug therapy Medications: Changed From hydroxychloroquine Take 1.5 tablets daily 300 mg (1.5 x 200 mg) PO DAILY 30 days 45 tabs 0RF To hydroxychloroquine Take 1.5 tablets daily 300 mg (1.5 x 200 mg) PO DAILY 135 tabs 1RF 90 days Refilled folic acid 1 mg PO DAILY 90 tabs 3RF methotrexate sodium take 8 tabs weekly. Please order MTX from prior distributer for patient. 20 mg (8 x 2.5 mg) PO QWEEK 96 tabs 0RF Coding Level of Care Code Est Pt Level 4 (35329) Complex EM visit Add On G2211 Diagnoses Rheumatoid arthritis M06.9 Other director long term care (current) drug therapy Z79.894
[2024-12-26 08:00] VITALS: BP 98/70; PULSE 79; O2SAT 98; BMI 22.0
== END 2024-12-26 08:36 | disposition home or self-care (01) ==
LOC: HO.RHES 07:56
PROVIDERS: PCP Internal Medicine; Visit Provider Internal Medicine Rheumatology
DX: M06.9 Rheumatoid arthritis, unspecified (principal); Z79.899 Other long term (current) drug therapy
CPT/HCPCS: 99214; G2211

== ENCOUNTER 2025-03-28 15:48 | Outpatient (REF) | payer OTHER, SELFPAY ==
--- OUTSIDE RECORDS SUMMARY | 2025-03-28 16:58 | XMS_ITS | Clinical Summary ---
Author Organization [facility], Address [address] [place] [address] [place] [address] Phone Care Team Providers Care Belt Conveyor Drier Name Role Phone Bruno Hawley Primary Care Provider [phone] Allergies Active Allergy Reactions Criticality Noted Date [...] Cancer Screening: Sigmoidoscopy 10/09/2011 Influenza Vaccine (#1) 2025 05/26/2020 Hepatitis B Vaccine Aged Out No longe r eligible based on patient's age to complete this topic Insurance Health Care Teams Belt Conveyor Drier Relationship Specialty Start Date End Date Bruno Hawley [address] [place] [id number] PCP - General Internal Medicine 09/12/19
--- OUTSIDE RECORDS SUMMARY | 2025-03-28 16:59 | XMS_ITS | Encounter Summary ---
Author Organization [facility] Address [address] [place] [address] Phone Care Team Providers Care Nursing Tech Name Role Phone Bruno Hawley Primary Care Provider [phone] Encounter Details Date Type Department Care Team (Late st Contact Info) Description 08/09/2022 Documentation Only [facility] [address] [place] [address] Jon Gomez MD [address] [place] [address] Social History Tobacco Use Types [...] on filedocumented in this encounter Care Teams Nursing Tech Relationship Specialty Start Date End Date Bruno Hawley [address] [place] [id number] PCP - General Internal Medicine 09/12/19 documented as of this encounter
--- OUTSIDE RECORDS SUMMARY | 2025-03-28 16:59 | XMS_ITS | Clinical Summary ---
Author Organization [facility] Address [address] [place] [phone] Care Team Providers Care Photocopying Equipment Repairer Name Role Phone Lania Mac APRN Primary Care Provider Allergies Active Allergy Reactions Criticality Noted Date Comments Lactose Diarrhea Low 01/07/2023 Penicillins Other (See Comments) 09/04/2019 Medications methotrexate (RHEUMATREX) 2.5 MG tablet Take by mouth Active loratadine (CLARITIN) 10 MG tablet Take by mouth. 1 Active folic acid (FOLVITE) 1 MG tablet Take by mouth. Activ e triamcinolone (NASACORT AQ) 55 MCG/ACT Aerosol nasal spray into each nostril. 1 Active PANTOprazole (PROTONIX) 40 MG EC tablet Take by mouth. Activ e fluticasone-sarika nterol (Breo Ellipta) 100-25 MCG/ACT inhaler Inhale. Acti ve albuterol (PROVENTIL HFA; VENTOLIN HFA) 108 (90 Base) MCG/ACT inhaler Inhale. 2 Active neomycin-polymyx in-hydrocortison e (CORTISPORIN) 1 % SolutionIndicati ons:Acute otitis externa of left ear, unspecified type Administer 4 drops into the left ear 3 (three) times a day. 10 mL 3 Active Active Problems No known active problems Social History Tobacco Use Types Packs/Day Years Used Date Smoking Tobacco: Never Assessed Comments Unknown Sex and Gender Information Value Date Recorded Sex Assigned at Not on file Legal Sex Female 4:37 PM EDT Gender Identity Not on file Sexual Orientation Not on file Last Filed Vital Signs Vital Sign Reading Time Taken Comments Blood Pressure 114/65 01/07/2023 8:53 AM EDT Pulse 83 01/07/2023 8:53 AM EDT Temperature 36.6 C (97.9 F) 01/07/2023 8:53 AM EDT Respiratory Rate - - Oxygen Saturation 100% 01/07/2023 8:53 AM EDT Inhaled Oxygen Concentration - - Weight 73.9 kg (163 lb) 01/07/2023 8:53 AM EDT Height 157.5 cm (5' 2 ) 01/07/2023 8:53 AM EDT Body Mass Index 29.81 01/07/2023 8:53 AM EDT Plan of Treatment Health Maintenance Due Date Last Done Comments Hepatitis C Virus Screening 1962 COVID-19 Vaccine (#1) 10/09/1967 HIV Screening 10/09/1975 DTaP/Tdap/Td Vaccines (1 - Tdap) 1981 Pneumococcal Vaccines 50+ (1 of 2 - PCV) 1981 Zoster (Shingles) Vaccine (1 of 2) 1981 Pap Smear (Ages 21-65) 10/09/1983 Mammogram 2002 Colonoscopy 10/09/2007 RSV Vaccine 60 years and old er and Patients (1 - Risk 60-74 years 1-dose series) 2022 Influenza Vaccine 02/08/2025 Hepatitis B Vaccines Aged Out No long er eligible based on patient's age to complete this topic Insurance [facility] Care Teams Photocopying Equipment Repairer Relationship Specialty Start Date End Date Laina Mac APRN [address] [place] [phone] PCP - General
--- OUTSIDE RECORDS SUMMARY | 2025-03-28 16:59 | XMS_ITS | Clinical Summary ---
Author Organization [facility] Address [address] [place] [address] Phone Care Team Providers Care Set Up Mold Technician Name Role Phone Karla Staton MD Primary Care Provider [phone] Allergies Active Allergy Reactions Criticality Noted Date Comments Lactose Diarrhea 03/17/2022 Penicillins 04/12/2006 ? Dizziness and dif breathing Medications azelastine (ASTELIN) 137 mcg (0.1 %) nasal spray INHALE 1 TO 2 SPRAY TWO TIMES A DAY IN EACH NOSTYRIL Active hydroxychloroqui ne (PLAQUENIL) 200 mg tablet TAKE 1 & 1/2 TABLET BY MOUTH EVERY DAY 09/15/19 24 Active meclizine (ANTIVERT) 25 mg tablet Take 1 tablet (25 mg total) by mouth every 8 (eight) hours if needed for dizziness. 05/17/20 23 Active albuterol HFA (PROAIR HFA ; PROVENTIL HFA ; VENTOLIN HFA) 90 mcg/actuation inhaler Inhale 2 Puffs into the lungs every 6 hours as needed for Cough, Wheezing or Shortness of Breath 10/21/19 23 Active folic acid (FOLVITE) 1 mg tablet folic acid 1 mg tablet Active methotrexate 2.5 mg tablet 8 tabs every week Active loratadine (CLARITIN) 10 mg tablet Take 1 tablet (10 mg total) by mouth 1 (one) time each day. 03/17/20 22 Active fluticasone propionate (FLONASE) 50 mcg/actuation nasal spray SPRAY 1 SPRAY INTO EACH NOSTRIL EVERY DAY BY INTRANASAL ROUTE DIRECTED FOR NASAL CONGESTION. 01/21/20 24 Active pantoprazole (PROTONIX) 40 mg EC tablet TAKE 1 TABLET BY MOUTH DAILY. TAKE IN A.M. ON EMPTY STOMACH, WAIT 30 MINUTES AND THEN EAT TO ACTIVATE MEDICATION 90 tablet 3 07/09/20 24 Active fluticasone furoate-vilanter oL (Breo Ellipta) 100-25 mcg/dose inhalerIndicatio ns:Gastro-esopha geal reflux disease without esophagitis,Mode rate persistent asthma, uncomplicated INHALE 1 PUFF INTO THE LUNGS DAILY. RINSE MOUTH WITH WATER AND EXPECTORATE AFTER EACH DOSE 180 each 11/08/19 25 Active famotidine (PEPCID) 20 mg tablet Take 1 tablet (20 mg total) by mouth 2 (two) times a day. 02/04/20 23 2024 Discontinued Active Problems Problem Noted Date Diagnosed Date Dysphagia 04/27/2024 Hoarseness of voice 04/27/2024 Postnasal drip 04/27/2024 Seasonal allergies 04/27/2024 Prediabetes 05/18/2023 Raynauds syndrome 09/15/2021 Rheumatoid arthritis ([facility] V24, [facility] V28) 09/15/2021 Overview (04/27/2024): [facility]thritis treatment center [facility] [...] giddiness 12/07/2006 Overview (04/27/2024): seen neurologist [place]. MRI normal in 11/2001 Encounters Date Type Department Care Team Description 03/13/2025 10:00 AM EDT Office Visit Adult Medicine [address] [phone] Karla Staton MD Prediabetes (Primary Dx); Snoring; Excessive daytime sleepiness 02/27/2025 3:00 PM EDT Office Visit Nephrology [address] [phone] Hossein Naik MD Nephrolithiasis (Primary Dx); Nephrocalcinosis from Last 3 Months Immunizations Name Administration Dates Next Due Human Rabies, Human Diploid Cell Culture, (Imovax) 08/03/2024,07/27/2024,07/23/2024,2024 Influenza Quadravalent, MDCK , 0.5ml, preservative free (Flucelvax) 6mo and older 03/13/2024,05/17/2023,05/28/2021 Influenza Quadravalent, MDCK , 0.5ml, with preservative (Flucelvax) 6mo and older 05/14/2018 Influenza Quadravalent, mehdi mbinant, 0.5ml, preservative free (Flublok) 18yo and older 05/26/2020 Pfizer SARS-CoV-2 COVID-19, mRNA, LNP-S, preservative free 04/05/2021,03/15/2021 Tdap Tetanus diptheria acell ular pertussis (Boostrix; Adacel) 7yo and older 05/17/2023,06/22/2012 Surgical History Surgery Date Site/Laterality Comments FLEXIBLE SIGMOIDOSCOPY 10/04/08 PROCEDURE: DC SIGMOIDOSCOPY FLX DX W/COLLJ SPEC BR/WA IF PFRMD; COMMENT: normal COLONOSCOPY 12/19/13 PROCEDURE: HISTORICAL COLONOSCOPY; COMMENT: tics; repeat in ten yrs ESOPHAGOGASTRODUODENOSCOPY 12/19/13 PROCEDURE: DC ESOPHAGOGASTRODUODENOSCOPY TRANSORAL DIAGNOSTIC; COMMENT: normal; nl duodenal [...] e sophageal narrowing Constipation DX:Constipation Rheumatoid arthritis (CMS/HC C V24, CMS/HCC V28) DX:Rheumatoid arthritis (HCC ) Chronic bronchitis (CMS/HCC V24, CMS/HCC V28) DX:Chronic bronchitis (HCC) Raspy voice DX:Raspy voice Esophageal stenosis DX:Esophagea l stenosis Migraines Family History Medical History Relation Name Comments Other: cancer Aunt paternal aunt, type uncertain Prostate cancer Father Other cancer Maternal Grandmother stomach Arthritis Mother Stacey Breast cancer Mother's side cousin, and m om's sister Colon cancer Neg Hx Ovarian cancer Neg Hx Relation Name Status Comments Aunt Father htn, prostate c ancer Maternal Grandmother Mother Stacey dm, Mother's side Social History Tobacco Use Types Packs/Day Years Used Date Smoking Tobacco: Never Smokeless Tobacco: Never Tobacco Cessation:Counseling Given: Not Answered Alcohol Use Standard Drinks/Week Comments No 0 (1 standard drink = 0.6 oz pur e alcohol) Housing Instability Answer Date Recorde d Are you worried that in the next 2 months you may not have stable housing? No 10/19/2024 Food Access & Nutrition Answer Date Rec orded Do you have access to a vari ety of food including fruits and vegetables? No 10/19/2024 Health Literacy Answer Date Recorded How often do you need to hav e someone help you when you read instructions, pamphlets, or other written material from your doctor or pharmacy? Never 10/19/2024 Caregiver: How often do you need to have someone help you when you read instructions, pamphlets, or other written material from your doctor or pharmacy? Not on file 10/19/2024 Financial Risk Answer Date Recorded How hard is it for you to pa y for the very basics like food, housing, medical care, and air conditioning / heating? Not very hard 10/19/2024 Transportation Answer Date Recorded Has the lack of transportati on kept you from meetings, work, or from getting things needed for daily living? No Has the lack of transportati on kept you from medical appointments or from getting medications? No 10/19/2024 Social Isolation Answer Date Recorded How often do you feel lonely or isolated from th ose around you? Never 10/19/2024 Food Risk Answer Date Recorded Within the past 12 months we worried whether our food would run out before we got money to buy more. Never true 10/19/2024 Within the past 12 months th e food we bought just didn't last and we didn't have money to get more. Never true 10/19/2024 Dependent Care Answer Date Recorded Do you need help finding or paying for care for your loved ones. For example, director child development center or elderly care for an older adult? No 10/19/2024 Education Answer Date Recorded Do you think completing more education or training, like finishing a GED, going to college, or learning a trade, would be helpful for you? No 10/19/2024 Employment and Income Answer Date Recor ded During the last four weeks, have you been actively looking for work? No 10/19/2024 Living Situation Answer Date Recorded What is your living situation? 0 10/19/2024 Interpersonal Safety Answer Date Record ed Physical Abuse 06/13/2024 Verbal Abuse 06/13/2024 Comments No Sex and Gender Information Value Date Recorded Sex Assigned at Female 10/04/2024 4:49 PM EDT Legal Sex Female 8:46 AM EST Gender Identity Female 10/04/2024 4:49 PM EDT Sexual Orientation Straight 10/04/2024 4: 49 PM EDT Obstetrics History Last Filed Vital Signs Vital Sign Reading Time Taken Comments Blood Pressure 106/58 03/13/2025 9:53 AM EDT Pulse 72 03/13/2025 9:53 AM EDT Temperature 36.6 C (97.8 F) 03/13/2025 9:53 AM EDT Respiratory Rate 14 03/13/2025 9:53 AM EDT Oxygen Saturation 97% 03/13/2025 9:53 AM EDT Inhaled Oxygen Concentration - - Weight 59.4 kg (131 lb) 03/13/2025 9:53 AM EDT Height 157.5 cm (5' 2 ) 03/13/2025 9:53 AM EDT Body Mass Index 23.96 03/13/2025 9:53 AM EDT Plan of Treatment Upcoming Encounters Date Type Department Care Team (Late st Contact Info) Description 05/30/2025 2:00 PM EST Office Visit Obstetrics and Gynecology - [address] [phone] Ese Dawkins CNM [address] [place] [address] 10/24/2025 9:30 AM EDT Office Visit [facility] - [address] [phone] Karla Staton MD [address] [place] [address] 02/26/2026 2:15 PM EDT Office Visit Nephrology - [address] [phone] Hossein Naik MD [address] [phone] Health Maintenance Due Date Last Done Comments Hepatitis A Vaccines (1 of 2 - Risk 2-dose series) 1981 Zoster Vaccines (1 of 2) 1981 COVID-19 Vaccine (3 - Pfizer risk series) 05/03/2021 04/05/2021, 03/15/2021 Hepatitis B Vaccines (1 of 3 - Risk 3-dose series) 2022 RSV Immunization Adult Patients (1 - Risk 60-74 years 1-dose series) 2022 Influenza Vaccine (#1) 2025 , 05/17/2023, 05/28/2021, Additional history exists Breast Cancer Screening 06/28/2025 06/28/2024 Social Influencers of Health Screening 10/19/2025 10/19/2024 Pneumococcal Vaccine: 50+ Years (1 of 2 - PCV) 03/13/2026 Postponed from 1981 (Patient Refused) Cervical Cancer Screening: HPV 11/10/2028 11/11/2023 Colorectal Cancer Screening: Colonoscopy 06/13/2029 06/13/2024, 12/19/2013 Cholesterol Screening (Lipid Panel) 10/30/2029 10/30/2024, 11/24/2023, 11/24/2023 DTaP,Tdap,and Td Vaccines (3 - Td or Tdap) 05/17/2033 05/17/2023, 06/22/2012 HIV Screening Completed 10/12/2017 Hepatitis C Screening Completed 10/12/2017 Depression Screening Completed 10/19/2024 HIB Vaccines Aged Out No longer eligi [...] age to complete this topic Meningococcal B Vaccine Aged Out No l onger eligible based on patient's age to complete this topic RSV Immunization Patients Under 20 months Aged Out No longer eligible based on patient's age to complete this topic Varicella Vaccines Aged Out No longer eligible based on patient's age to complete this topic Procedures Procedure Name Priority Date/Time Associated Diagnosis Comments LIPID PANEL WITH REFLEX TO DIRECT LDL Routine 10/30/2024 9:49 AM EDT PE (physical exam), annual MG MAMMO DIGITAL DIAGNOSTIC BILAT Routine 06/28/2024 12:43 PM EST COLONOSCOPY Routine 06/13/2024 4:07 PM EST Special screening for malignant neoplasms, colon HPV Routine 11/11/2023 HEPATITIS C SCREENING Routine 10/12/2017 HIV SCREENING Routine 10/12/2017 from Last 3 Months or Most Recently Relevant to Health Maintenance Results * Lipid panel with reflex to direct LDL (10/30/2024 9:49 AM EDT) Cholesterol 190 0 - 200 mg/dL LAB CHE[facility] Triglycerides 52 0 - 150 mg/dL LAB CHEMISTRY METHOD 10/30/2024 2:45 PM EDT [facility] HDL 91 >=40 mg/dL LAB CHEMISTRY METHOD 10/30/2024 2:45 PM EDT [facility] LDL Calculated 89 0 - 100 mg/dL LAB CHEMISTRY METHOD 10/30/2024 2:45 PM [facility] VLDL Cholesterol Artemio 10.4 mg/dL LAB CHEMISTRY METHOD 10/30/2024 2:45 PM T [facility] Non HDL Chol. (LDL+VLDL) 99 <145 mg/dL LAB CHEMISTRY METHOD 10/30/2024 2:45 PM EDT [facility] Chol/HDL Ratio 2.1 0.0 - 4.4 LAB CHEMISTRY METHOD 10/30/2024 2:45 PM [facility] Blood Venous blood specimen / Unknown Venipuncture / Unknown 10/30/2024 9:49 AM EDT 10/30/2024 9:49 AM EDT Karla Staton MD LAB BLOOD ORDERABLES Final Resul t [facility] H[facility] LAB [address] [place] [address], [place] [phone] * MG Mammo Digital Diagnostic bilat (06/28/2024 12:43 PM EST) Anatomical Region Laterality Modality Breast Bilateral Mammography Historical Provider MD RITCHIE BI PROCEDURES Final R esult * COLONOSCOPY Anesthesia - MAC; [facility] ENDOSCOPY (06/13/2024 4:07 PM EST) Anatomical Region Laterality Modality Endoscopy 06/13/2024 3:52 PM EST Impressions 06/13/2024 4:09 PM EST - Three 2 to 3 mm polyps in the ascending colon, removed with a cold snare. Resected and retrieved. - Melanosis in the colon. - Diverticulosis in the sigmoid colon. - Internal hemorrhoids. - The examination was otherwise normal. Recommendation: - Discharge patient to home. - Await pathology results. - Repeat colonoscopy in 7-10 years for surveillance. Narrative 06/13/2024 4:09 PM EST [facility] GI Patient Name: Leslye Dior Procedure [...] the procedure, a History and Physical was performed, and patient medications and allergies were reviewed. The patient is competent. The risks and benefits of the procedure and the sedation options and risks were discussed with the patient. All questions were answered and informed consent was obtained. Patient identification and proposed procedure were verified by the physician, the nurse, the coffee grinder and the dialysis chief equipment technician in the pre-procedure area in the endoscopy suite. Mental Status Examination: alert and oriented. Airway Examination: normal oropharyngeal airway and neck mobility. Respiratory Examination: clear to auscultation. CV Examination: normal. Prophylactic Antibiotics: The patient does not require prophylactic antibiotics. Prior Anticoagulants: The patient has taken no anticoagulant or antiplatelet agents. ASA Grade Assessment: II - A patient with mild systemic disease. After reviewing the risks and [...] monitored throughout the procedure. The physical status of the patient was re-assessed after the procedure. After I obtained informed consent, the scope was passed under direct vision. Throughout the procedure, the patient's blood pressure, pulse, and oxygen saturations were monitored continuously. The Olympus Colonoscope was introduced through the anus and [...] to 3 mm in size. These polyps were removed with a cold snare. Resection and retrieval were complete. Estimated blood loss was minimal. A diffuse area of mild melanosis was found in the sigmoid colon, in the descending colon and in the transverse colon. Multiple small-mouthed diverticula were found in the sigmoid colon. Internal hemorrhoids were found during retroflexion. The hemorrhoids were Grade I (internal hemorrhoids that do not prolapse). The exam was otherwise without abnormality. Procedure Code(s): --- Professional --- 96783, Colonoscopy, flexible; with removal of tumor(s), polyp(s), or other lesion(s) by snare technique Diagnosis Code(s): --- Professional --- D12.2, Benign neoplasm of ascending colon CPT copyright 2020 [employer]. All rights reserved. The codes documented in this report are preliminary and upon yarn weigher review may be revised to meet current compliance requirements. Ayanna Garcias MD 06/13/2024 4:08:51 PM This report has been signed electronically.Ayanna Garcias MD Number of Addenda: 0 Note Initiated On: 06/13/2024 3:52 PM Scope Withdrawal Time: 0 hours 6 minutes 6 seconds Scope In: 3:57:09 PM Scope Out: 4:06:07 PM Endoscopy Department at [facility] - [address] [place] [phone] Procedure Note Ayanna Garcias MD - 06/13/2024 [facility] Patient Name: Leslye Dior Procedure [...] the physician, the nurse, theanesthetist and the dialysis chief equipment technician in the pre-procedure area in the [...] without abnormality. Procedure Code(s): --- Professional --- 92905, Colonoscopy, flexible; with removal of tumor(s), polyp(s), or other lesion(s) by snare technique Diagnosis Code(s): --- Professional --- D12.2, Benign neoplasm of ascending colon CPT copyright 2020 [employer]. All rights reserved. The codes documented in this report are preliminary and upon yarn weigher reviewmay be revised to meet current compliance requirements. Ayanna Garcias MD 06/13/2024 4:08:51 PM This report has been signed electronically.Ayanna Garcias MD Number of Addenda: 0 Note Initiated On: 06/13/2024 3:52 PM Scope Withdrawal Time: 0 hours 6 minutes 6 seconds Scope In: 3:57:09 PM Scope Out: 4:06:07 PM Endoscopy Department at [facility] - [address] [place] [phone] IMPRESSION: - Three 2 to 3 mm [...] MD GI~PROCEDURE ORDERABLES Fin al Result * Cervical Cancer Screening: HPV (11/11/2023) Pathologist [facility] Cervical Cancer Screening: HPV abstracted; negative Historical Provider HEALTH MAINTENANCE Final Result * HIV Screening (10/12/2017) Pathologist [facility] HIV Screening abstracted [facility] Provider HEALTH MAINTENANCE Final Result * Hepatitis C Screening (10/12/2017) Pathologist [facility] Hepatitis C Screening abstracted [facility] Provider HEALTH MAINTENANCE Final Result from Last 3 Months or Most Recently Relevant to Health Maintenance Insurance [facility] Care Teams Set Up Mold Technician Relationship Specialty Start Date End Date Karla Staton MD [address] [place] [address] PCP - General Internal Medicine 05/31/24
--- OUTSIDE RECORDS SUMMARY | 2025-03-28 16:59 | XMS_ITS | Encounter Summary ---
Author Organization [facility] Address [address] [place] [address] Phone Care Team Providers Care Credit Review Officer Name Role Phone Bruno Hawley Primary Care Provider [phone] Encounter Details Date Type Department Care Team (Late st Contact Info) Description 01/07/2022 Documentation Only [facility] [address] [place] [address] Jon Gomez MD [address] [place] [address] Social History Tobacco Use Types [...] on filedocumented in this encounter Care Teams Credit Review Officer Relationship Specialty Start Date End Date Bruno Hawley [address] [place] [phone] PCP - General Internal Medicine 09/12/19 documented as of this encounter
[2025-03-28 17:56] LABS: Baso%MD 0.7 %; Eos%MD 1.8 %; Hematocrit 36.2 % (37.0-47.0); Hemoglobin 12.1 g/dl (12.0-16.0); IG%MD 0.2 %; Lymph%MD 53.6 %; Mean Corpuscular HGB Conc 33.4 g/dl (31.0-35.0); Mean Corpuscular Hemoglobin 31.5 pg (27.0-33.0); Mean Corpuscular Volume 94.3 fL (80.0-98.0); Mono%MD 12.7 %; NRBC Abs Auto 0.000 X10*3/uL (0.0-0.012); NRBC Pct Auto 0.0 /100WBC (0.0-0.2); Neut%MD 31.0 %; Platelet Count 277 X10*3/uL (160-400); Red Blood Count 3.84 X10*6/uL (4.20-5.50); White Blood Count 4.4 X10*3/uL (4.8-10.8)
[2025-03-28 18:24] LABS: Alanine Aminotransferase 17 U/L (0-31); Aspartate Amino Transferase 22 U/L (5-31); Estimated Glomerular Filt Rate > 60
[2025-03-28 20:23] LABS: Atypical Lymphs Percent Manual 1 % (0-6); Band Neutrophils Percent 0 % (3-5); Eosinophils Absolute Manual 0.1 X10*3/uL (0.0-0.4); Eosinophils Percent Manual 2 % (0-4); Lymphocytes Absolute Manual 2.2 X10*3/uL (1.2-4.9); Lymphocytes Percent Manual 51 % (20-40); Monocytes Absolute Manual 0.6 X10*3/uL (0.1-1.2); Monocytes Percent Manual 13 % (2-11); Neutrophils Absolute Manual 1.5 X10*3/uL (2.0-8.3); Neutrophils Percent Manual 33 % (45-73)
[2025-03-28 20:24] LABS: RBC Morphology NORMAL
== END 2025-03-28 15:49 | disposition home or self-care (01) ==
LOC: HO.HKASLDS 15:48
PROVIDERS: Visit Provider Internal Medicine Rheumatology
DX: M06.9 Rheumatoid arthritis, unspecified (principal); Z79.899 Other long term (current) drug therapy
CPT/HCPCS: 36415; 82565; 84450; 84460; 85007; 85027; 85652; 86140

== ENCOUNTER 2025-04-04 08:16 | Outpatient (AMB) | payer OTHER, SELFPAY ==
--- NOTE | 2025-04-04 08:19 | MHC.OFFVIS ---
Vital Signs 04/04/25 08:21 Height 5 ft 5.2 in Weight 134 lb 4.184 oz BMI 22.2 BP 100/60 Blood Pressure Location Rt brachial Position Sitting Pulse 86 Pulse Source Pulse Oximeter Pulse Oximetry (%) 100 Intake Visit Reasons: 3 months Intake Note: Patient presents today for follow up on rheumatoid arthritis. Accompanied by: Self / Same As Patient Allergies Penicillins Allergy (Mild, Verified 04/04/25 08:22) Dizziness HPI HPI 3 months: Details: No new joint pain or swelling. No recent infections. Physical Exam Vital Signs: Last Vital Signs Pulse 86 04/04/25 08:21 BP 100/60 04/04/25 08:21 Pulse Ox 100 04/04/25 08:21 BMI result Body Mass Index 22.2 Const Other: General: Comfortable CVS: RRR Respiratory: clear to auscultation bilaterally. Good respiratory effort Skin: No lesions seen MSK: No tenderness on palpation of any joints. No synovitis. Normal range of motion of upper extremities and lower extremities. Assessment & Plan Assessment & Plan (1) Rheumatoid arthritis: Comment: She is in remission on current regimen. She has mild leukopenia and decrease HCT likely due to bone suppression from methotrexate. I will monitor closely. Rheumatology history: Seronegative (RF/CCP). Positive ELICEO 1:640. Methotrexate 09/2021 to present, hydroxychloroquine May 2022 to present. Code(s): M06.9 - Rheumatoid arthritis, unspecified Category: Medical Plan: Labs for disease and drug monitoring UTD. She prefers to do labs prior to follow-up. Continue hydroxychloroquine 300 mg daily. Baseline OCT and VF 05/2023 Continue methotrexate 20 mg once weekly. Increase folic acid 2 mg daily Consider decreasing MTX next visit if she continues to have cytopenias Immunizations: she will get flu shot Return to clinic in 3 months (2) Other nursing home (current) drug therapy: Code(s): Z79.899 - Other termite control servicer (current) drug therapy Category: Medical Plan: See above Orders: Orders Alanine Aminotransferase 3 Months Z79.899 - Other nursing home (current) drug therapy Aspartate Amino Transferase 3 Months Z79.899 - Other termite control servicer (current) drug therapy Creatinine 3 Months Z79.899 - Other nursing home (current) drug therapy Complete Blood Count Auto Diff 3 Months Z79.899 - Other termite control servicer (current) drug therapy C Reactive Protein 3 Months Z79.899 - Other termite control servicer (current) drug therapy Erythrocyte Sedimentation Rate 3 Months Z79.899 - Other termite control servicer (current) drug therapy Medications: Changed From folic acid 1 mg PO DAILY 90 tabs 3RF To folic acid 2 mg (2 x 1 mg) PO DAILY 180 tabs 4RF Coding Level of Care Code Est Pt Level 4 (63556) Complex EM visit Add On G2211 Diagnoses Rheumatoid arthritis M06.9 Other nursing home (current) drug therapy Z79.899
[2025-04-04 08:21] VITALS: BP 100/60; PULSE 86; O2SAT 100; BMI 22.2
--- OUTSIDE RECORDS SUMMARY | 2025-04-04 08:41 | XMS_ITS | Encounter Summary ---
Author Organization [facility] Address [address] [place] [address] Phone Care Team Providers Care Jewel Bearing Broacher Name Role Phone Bruno Hawley Primary Care Provider [phone] Encounter Details Date Type Department Care Team (Late st Contact Info) Description 08/09/2022 Documentation Only [facility] [address] [place] [address] Jon Gomez MD [address] [place] [address] Social History Tobacco Use Types [...] on filedocumented in this encounter Care Teams Jewel Bearing Broacher Relationship Specialty Start Date End Date Bruno Hawley [address] [place] [id number] PCP - General Internal Medicine 09/12/19 documented as of this encounter
--- OUTSIDE RECORDS SUMMARY | 2025-04-04 08:41 | XMS_ITS | Encounter Summary ---
Author Organization [facility] Address [address] [place] [address] Phone Care Team Providers Care Production Potter Name Role Phone Bruno Hawley Primary Care Provider [phone] Encounter Details Date Type Department Care Team (Late st Contact Info) Description 01/07/2022 Documentation Only [facility] [address] [place] [address] Jon Gomez MD [address] [place] [address] Social History Tobacco Use Types [...] on filedocumented in this encounter Care Teams Production Potter Relationship Specialty Start Date End Date Bruno Hawley [address] [place] [phone] PCP - General Internal Medicine 09/12/19 documented as of this encounter
--- OUTSIDE RECORDS SUMMARY | 2025-04-04 08:41 | XMS_ITS | Clinical Summary ---
Author Organization [facility] Address [address] [place] [address] Phone Care Team Providers Care Ethnology Professor Name Role Phone Karla Staton MD Primary Care Provider [phone] Allergies Active Allergy Reactions Criticality Noted Date Comments Lactose Diarrhea 03/17/2022 Penicillins 04/12/2006 ? Dizziness and dif breathing Medications azelastine (ASTELIN) 137 mcg (0.1 %) nasal spray INHALE 1 TO 2 SPRAY TWO TIMES A DAY IN EACH NOSTYRIL Active hydroxychloroquin e (PLAQUENIL) 200 mg tablet TAKE 1 & 1/2 TABLET BY MOUTH EVERY DAY 4 Active meclizine (ANTIVERT) 25 mg tablet Take 1 tablet (25 mg total) by mouth every 8 (eight) hours if needed for dizziness. 3 Active albuterol HFA (PROAIR HFA ; [...] ACTIVATE MEDICATION 90 tablet 3 4 Active fluticasone furoate-vilantero L (Breo Ellipta) 100-25 mcg/dose inhalerIndication s:Gastro-esophage al reflux disease without esophagitis,Moder ate persistent asthma, uncomplicated INHALE 1 PUFF INTO THE LUNGS DAILY. RINSE MOUTH WITH WATER AND EXPECTORATE AFTER EACH DOSE 180 each 5 Active Active Problems Problem Noted Date Diagnosed Date Dysphagia 04/27/2024 Hoarseness of voice 04/27/2024 Postnasal drip 04/27/2024 Seasonal allergies 04/27/2024 Prediabetes 05/18/2023 Raynauds syndrome 09/15/2021 Rheumatoid arthritis ([facility] V24, [facility] V28) 09/15/2021 Overview (04/27/2024): [facility]thritis treatment center [...] giddiness 12/07/2006 Overview (04/27/2024): seen neurologist in [place]. MRI normal in 11/2001 Encounters Date Type Department Care Team Description 03/13/2025 10:00 AM EDT Office Visit [place] [facility] [place] - [address] [phone] Karla Staton MD Prediabetes (Primary Dx); Snoring; Excessive daytime sleepiness 02/27/2025 3:00 PM EDT Office Visit Nephrology - [address] [phone] Hossein Naik MD Nephrolithiasis (Primary Dx); Nephrocalcinosis [...] care for your loved ones. For example, child adolescent care or elderly care for an older adult? [...] EST Office Visit Obstetrics and Gynecology - [address] [phone] Ese Dawkins CNM [address] [place] [address] 10/24/2025 9:30 AM EDT Office Visit [place] - [address] [phone] Karla Staton MD [address] [place] [address] 02/26/2026 2:15 PM EDT Office Visit Nephrology - [address] [phone] Hossein Naik MD [address] [phone] Health Maintenance Due Date Last Done Comments [...] LAB CHEMISTRY METHOD 10/30/2024 2:45 PM EDT [facility] Triglycerides 52 0 - 150 mg/dL LAB CHEMISTRY METHOD 10/30/2024 2:45 PM EDT [facility] HDL 91 >=40 mg/dL LAB CHEMISTRY METHOD 10/30/2024 2:45 PM EDT [facility] LDL Calculated 89 0 - 100 mg/dL LAB CHEMISTRY METHOD 10/30/2024 2:45 PM EDT [facility] VLDL Cholesterol Artemio 10.4 mg/dL LAB CHEMISTRY METHOD 10/30/2024 2:45 PM EDT [facility] Non HDL Chol. (LDL+VLDL) 99 <145 mg/dL LAB CHEMISTRY METHOD 10/30/2024 2:45 PM EDT [facility] Chol/HDL Ratio 2.1 0.0 - 4.4 LAB CHEMISTRY METHOD 10/30/2024 2:45 PM EDT [facility] Blood Venous blood specimen / Unknown Venipuncture / Unknown 10/30/2024 9:49 AM EDT 10/30/2024 9:49 AM EDT us Karla Staton MD LAB BLOOD ORDERABLES Final Resul t [facility] [address] [place] [address], * MG Mammo Digital Diagnostic bilat (06/28/2024 12:43 PM EST) Anatomical Region Laterality Modality Breast Bilateral Mammography us Historical Provider MD RITCHIE BI PROCEDURES Final R esult * COLONOSCOPY Anesthesia - MAC; [facility] ENDOSCOPY (06/13/2024 4:07 PM EST) Anatomical Region [...] for surveillance. Narrative 06/13/2024 4:09 PM EST [facility] Patient Name: Leslye Dior Procedure [...] verified by the physician, the nurse, the stores laborer and the lawn and garden technician in the pre-procedure area in the [...] without abnormality. Procedure Code(s): --- Professional --- 54578, Colonoscopy, flexible; with removal of tumor(s), polyp(s), or other lesion(s) by snare technique Diagnosis Code(s): --- Professional --- D12.2, Benign neoplasm of ascending colon CPT copyright 2020 [employer]. All rights reserved. The codes documented in this report are preliminary and upon caddy review may be revised to meet current compliance requirements. Ayanna Garcias MD 06/13/2024 4:08:51 PM This report has been signed electronically.Ayanna Garcias MD Number of Addenda: 0 Note Initiated On: 06/13/2024 3:52 PM Scope Withdrawal Time: 0 hours 6 minutes 6 seconds Scope In: 3:57:09 PM Scope Out: 4:06:07 PM Endoscopy Department at [facility] - [address] [place] [phone] Procedure Note Ayanna Garcias MD - 06/13/2024 [facility] Patient Name: Leslye Dior Procedure [...] the physician, the nurse, theanesthetist and the lawn and garden technician in the pre-procedure area in the [...] without abnormality. Procedure Code(s): --- Professional --- 45765, Colonoscopy, flexible; with removal of tumor(s), polyp(s), or other lesion(s) by snare technique Diagnosis Code(s): --- Professional --- D12.2, Benign neoplasm of ascending colon CPT copyright 2020 [employer]. All rights reserved. The codes documented in this report are preliminary and upon caddy reviewmay be revised to meet current compliance requirements. Ayanna Garcias MD 06/13/2024 4:08:51 PM This report has been signed electronically.Ayanna Garcias MD Number of Addenda: 0 Note Initiated On: 06/13/2024 3:52 PM Scope Withdrawal Time: 0 hours 6 minutes 6 seconds Scope In: 3:57:09 PM Scope Out: 4:06:07 PM Endoscopy Department at [facility] - [address] [place] [phone] IMPRESSION: - Three 2 to 3 mm [...] * Cervical Cancer Screening: HPV (11/11/2023) Pathologist [facility] Cervical Cancer Screening: HPV abstracted; negative Historical Provider HEALTH MAINTENANCE Final Result * HIV Screening (10/12/2017) Pathologist [facility] HIV Screening abstracted Historical Provider HEALTH MAINTENANCE Final Result * Hepatitis C Screening (10/12/2017) Pathologist [facility] Hepatitis C Screening abstracted Historical Provider HEALTH MAINTENANCE Final Result from Last 3 Months or Most Recently Relevant to Health Maintenance Insurance [facility] Care Teams Ethnology Professor Relationship Specialty Start Date End Date Karla Staton MD [address] [place] [address] PCP - General Internal Medicine 05/31/24
--- OUTSIDE RECORDS SUMMARY | 2025-04-04 08:41 | XMS_ITS | Clinical Summary ---
Author Organization [facility] Address [address] [place] [address] [place] [address] Phone Care Team Providers Care Charge Manager Name Role Phone Bruno Hawley Primary Care Provider Allergies Active Allergy Reactions [...] complete this topic Insurance Health Care Teams Charge Manager Relationship Specialty Start Date End Date Bruno Hawley [address] [place] [phone] PCP - General Internal Medicine 09/12/19
--- OUTSIDE RECORDS SUMMARY | 2025-04-04 08:41 | XMS_ITS | Clinical Summary ---
Author Organization [facility] Address [address] [place] [address] Care Team Providers Care Vp Compliance Name Role Phone Laina Mac APRN Primary Care Provider [phone] Allergies Active Allergy Reactions Criticality Noted Date [...] patient's age to complete this topic Insurance [facility] Care Teams Vp Compliance Relationship Specialty Start Date End Date Laina Mac APRN [address] [place] [phone] PCP - General
== END 2025-04-04 09:01 | disposition home or self-care (01) ==
LOC: HO.RHES 08:16
PROVIDERS: PCP Internal Medicine; Visit Provider Internal Medicine Rheumatology
DX: M06.9 Rheumatoid arthritis, unspecified (principal); Z79.899 Other long term (current) drug therapy
CPT/HCPCS: 99214; G2211

== ENCOUNTER 2025-07-10 12:19 | Outpatient (REF) | payer OTHER, SELFPAY ==
[2025-07-10 12:30] LABS: MANUAL DIFF FLAG NO
[2025-07-10 12:46] LABS: Hematocrit 38.9 % (37.0-47.0); Hemoglobin 12.9 g/dl (12.0-16.0); Imm Gran Abs Auto 0.00 X10*3/uL (0.00-0.03); Imm Gran Pct Auto 0.0 % (0.0-0.4); Lymphocytes Absolute Auto 1.8 X10*3/uL (1.2-4.9); Mean Corpuscular HGB Conc 33.2 g/dl (31.0-35.0); Mean Corpuscular Hemoglobin 31.9 pg (27.0-33.0); Mean Corpuscular Volume 96.0 fL (80.0-98.0); NRBC Abs Auto 0.000 X10*3/uL (0.0-0.012); NRBC Pct Auto 0.0 /100WBC (0.0-0.2); Platelet Count 293 X10*3/uL (160-400); Red Blood Count 4.05 X10*6/uL (4.20-5.50); White Blood Count 4.0 X10*3/uL (4.8-10.8)
[2025-07-10 13:40] LABS: Alanine Aminotransferase 21 U/L (0-31); Aspartate Amino Transferase 21 U/L (5-31); Estimated Glomerular Filt Rate > 60
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
--- OUTSIDE RECORDS SUMMARY | 2025-07-10 14:05 | XMS_ITS | Clinical Summary ---
Author Organization [facility], Address [address] [place] [address] [place] [address] Phone Care Team Providers Care Manager Of Investigations Name Role Phone Bruno Hawley Primary Care Provider [phone] Allergies Active Allergy Reactions Criticality Noted Date [...] Date Diagnosed Date Fibromyalgia 09/04/2019 Nephrocalcinosis 09/04/2019 Steatotic liver disease 09/04/2019 Vitamin D deficiency 09/04/2019 Immunizations Immunization [...] complete this topic Insurance Health Care Teams Manager Of Investigations Relationship Specialty Start Date End Date Bruno Hawley [address] [place] [id number] PCP - General Internal Medicine 09/12/19
--- OUTSIDE RECORDS SUMMARY | 2025-07-10 14:05 | XMS_ITS | Clinical Summary ---
Author Organization [facility] Address [address] [place] [address] Phone Care Team Providers Care Debt Recovery Officer Name Role Phone Karla Staton MD Primary Care Provider [phone] Allergies Active Allergy Reactions Criticality Noted Date [...] ROUTE DIRECTED FOR NASAL CONGESTION. 4 Active fluticasone furoate-vilantero L (Breo Ellipta) 100-25 mcg/dose inhalerIndication s:Gastro-esophage al reflux disease without esophagitis,Moder ate persistent asthma, uncomplicated INHALE 1 PUFF INTO THE LUNGS DAILY. RINSE MOUTH WITH WATER AND EXPECTORATE AFTER EACH DOSE 180 each 5 Active pantoprazole (PROTONIX) 40 mg EC tablet Take 1 tablet (40 mg total) by mouth 1 (one) time each day before breakfast. Take 1 Tablet by mouth daily. Take in a.m. on empty stomach, wait 30 minutes and then eat to activate medication 90 each 5 026 Active Active Problems Problem Noted Date Diagnosed [...] Encounters Date Type Department Care Team Description 05/04/2025 Telephone Gastroenterology - [place] [address] [facility] [address] [place] [address] Rachel Reyna NP from Last 3 Months Immunizations Immunization Administration Dates Next Due Human Rabies, Human Diploid Cell Culture, (Imovax) 08/03/2024,07/27/2024,07/23/2024,2024 Influenza Quadravalent, MDCK , 0.5ml, preservative free (Flucelvax) 6mo and older 03/13/2024,05/17/2023,05/28/2021 Influenza Quadravalent, MDCK , 0.5ml, with preservative (Flucelvax) 6mo and older 05/14/2018 Influenza Quadravalent, mehdi mbinant, 0.5ml, preservative free (Flublok) 18yo and older 05/26/2020 Pfizer SARS-CoV-2 COVID-19, mRNA, LNP-S, preservative free 04/05/2021,03/15/2021 Rabies Immune Globulin 07/20/2024 Tdap Tetanus diptheria acell ular pertussis (Boostrix; Adacel) 7yo and older 05/17/2023,06/22/2012 Surgical History Surgery Date Site/Laterality Comments FLEXIBLE SIGMOIDOSCOPY 10/04/08 PROCEDURE: IL SIGMOIDOSCOPY FLX DX W/COLLJ SPEC BR/WA IF PFRMD; COMMENT: normal COLONOSCOPY 12/19/13 PROCEDURE: HISTORICAL COLONOSCOPY; COMMENT: tics; repeat in ten yrs ESOPHAGOGASTRODUODENOSCOPY 12/19/13 PROCEDURE: [place] ESOPHAGOGASTRODUODENOSCOPY TRANSORAL DIAGNOSTIC; COMMENT: normal; nl duodenal [...] your loved ones. For example, child adolescent psychiatrist or elderly care for an older adult? [...] Date Recorded What is your living situation? Unrecognized valu e 10/19/2024 Interpersonal Safety Answer Date Record ed Physical Abuse Unrecognized value 06/13/2024 Verbal Abuse Unrecognized value 06/13/2024 Comments No Sex and Gender Information Value Date Recorded Sex Assigned at Female 10/04/2024 4:49 PM EDT Legal Sex Female 8:46 AM EST Gender Identity Female 10/04/2024 4:49 PM EDT Sexual Orientation Straight 10/04/2024 4: 49 PM EDT Last Filed Vital Signs Vital [...] Care Team (Late st Contact Info) Description 07/18/2025 8:45 AM EST Office Visit Obstetrics and Gynecology - [address] [phone] 10/24/2025 9:30 AM EDT Office Visit [facility] - [address] [phone] Karla Staton MD [address] [place] [address] 01/15/2026 9:00 AM EDT Office Visit Gastroenterology - [address] [phone] Rachel Reyna NP [address] [address] 02/26/2026 2:15 PM EDT Office Visit Nephrology - [address] [phone] Hossein Naik MD [address] [facility] [address] [place] [address] Health Maintenance Due Date Last Done Comments Hepatitis A Vaccines (1 of 2 - Risk 2-dose series) 1981 Zoster Vaccines (1 of 2) 1981 RSV Immunization Adult Patients (1 - Risk 50-74 years 1-dose series) 2012 COVID-19 Vaccine (3 - Pfizer risk series) 05/03/2021 04/05/2021, 03/15/2021 Hepatitis B Vaccines (1 of 3 - Risk 3-dose series) 2022 Influenza Vaccine (#1) 2025 , [...] LAB CHEMISTRY METHOD 10/30/2024 2:[address] [facility] Triglycerides 52 0 - 150 mg/dL LAB CHEMISTRY METHOD 10/30/2024 2:[address] [facility] HDL 91 >=40 mg/dL LAB CHEMISTRY METHOD 10/30/2024 2:[address] [facility] LDL Calculated 89 0 - 100 mg/dL LAB CHEMISTRY METHOD 10/30/2024 2:45 PM [facility] VLDL Cholesterol Artemio 10.4 mg/dL LAB CHEMISTRY METHOD 10/30/2024 2:[address] [facility] Non HDL Chol. (LDL+VLDL) 99 <145 mg/dL LAB CHEMISTRY METHOD 10/30/2024 2:[address] [facility] Chol/HDL Ratio 2.1 0.0 - 4.4 LAB CHEMISTRY METHOD 10/30/2024 2:45 PM [facility] Blood Venous blood specimen / Unknown Venipuncture / Unknown 10/30/2024 9:49 AM EDT 10/30/2024 9:49 AM EDT Karla Staton MD LAB BLOOD ORDERABLES Final Resul t [facility] [address] [place] [address], * MG Mammo Digital Diagnostic bilat (06/28/2024 12:43 PM EST) Anatomical Region Laterality Modality Breast Bilateral Mammography Historical Provider MD RITCHIE BI PROCEDURES Final R esult * COLONOSCOPY Anesthesia - MAC; [facility] ENDOSCOPY (06/13/2024 4:07 PM EST) Anatomical [...] for surveillance. Narrative 06/13/2024 4:09 PM EST [facility] Patient Name: Leslye Chavira Procedure Date: 06/13/2024 3:52 PM Date of [...] verified by the physician, the nurse, the barrer and tacker and the tool repair technician in the pre-procedure area in the [...] without abnormality. 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 All rights reserved. The codes documented in this report are preliminary and upon corporation lawyer review may be revised to meet current compliance requirements. Ayanna Garcias MD 06/13/2024 4:08:51 PM This report has been signed electronically.Ayanna Garcias MD Number of Addenda: 0 Note Initiated On: 06/13/2024 3:52 PM Scope Withdrawal Time: 0 hours 6 minutes 6 seconds Scope In: 3:57:09 PM Scope Out: 4:06:07 PM Endoscopy Department at [facility] - [address] [place] [phone] Procedure Note Ayanna Garcias MD - 06/13/2024 [facility] Patient Name: Leslye Chavira Procedure Date: 06/13/2024 3:52 PM Date of [...] the physician, the nurse, theanesthetist and the tool repair technician in the pre-procedure area in the [...] without abnormality. 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 All rights reserved. The codes documented in this report are preliminary and upon corporation lawyer reviewmay be revised to meet current compliance requirements. Ayanna Garcias MD 06/13/2024 4:08:51 PM This report has been signed electronically.Ayanna Garcias MD Number of Addenda: 0 Note Initiated On: 06/13/2024 3:52 PM Scope Withdrawal Time: 0 hours 6 minutes 6 seconds Scope In: 3:57:09 PM Scope Out: 4:06:07 PM Endoscopy Department at [facility] - [address] [place] [phone] IMPRESSION: - Three 2 to 3 mm [...] Result * Cervical Cancer Screening: HPV (11/11/2023) Cervical Cancer Screening: HPV abstracted; negative Historical Provider HEALTH MAINTENANCE Final Result * HIV Screening (10/12/2017) HIV Screening abstracted [facility] Provider HEALTH MAINTENANCE Final Result * Hepatitis C Screening (10/12/2017) Hepatitis C Screening abstracted Historical Provider HEALTH MAINTENANCE Final Result from Last 3 Months or Most Recently Relevant to Health Maintenance Insurance [facility] Care Teams Debt Recovery Officer Relationship Specialty Start Date End Date Karla Staton MD [address] [place] [address] PCP - General Internal Medicine 05/31/24
--- OUTSIDE RECORDS SUMMARY | 2025-07-10 14:05 | XMS_ITS | Encounter Summary ---
Author Organization [facility] Address [address] [place] [address] Phone Care Team Providers Care Media Planner Name Role Phone Bruno Hawley Primary Care Provider [phone] Encounter Details Date Type Department Care Team (Late st Contact Info) Description 08/09/2022 Documentation Only [facility] [address] [place] [address] Jon Gomez MD [address] [facility] [address] [place] [address] Social History Tobacco Use Types [...] on filedocumented in this encounter Care Teams Media Planner Relationship Specialty Start Date End Date Bruno Hawley [address] [place] [id number] PCP - General Internal Medicine 09/12/19 documented as of this encounter
--- OUTSIDE RECORDS SUMMARY | 2025-07-10 14:05 | XMS_ITS | Encounter Summary ---
Author Organization [facility] Address [address] [place] [address] Phone Care Team Providers Care Health It Specialist Name Role Phone Bruno Hawley Primary Care Provider [phone] Encounter Details Date Type Department Care Team (Late st Contact Info) Description 01/07/2022 Documentation Only [facility] [address] [place] [address] Jon Gomez MD [address] [place] [address] Social History Tobacco Use Types [...] on filedocumented in this encounter Care Teams Health It Specialist Relationship Specialty Start Date End Date Bruno Hawley [address] [place] [id number] PCP - General Internal Medicine 09/12/19 documented as of this encounter
== END 2025-07-10 12:20 | disposition home or self-care (01) ==
LOC: HO.LAB 12:19
PROVIDERS: PCP Internal Medicine; Visit Provider Internal Medicine Rheumatology
DX: Z79.899 Other long term (current) drug therapy (principal)
CPT/HCPCS: 36415; 82565; 84450; 84460; 85025; 85652; 86140